=== PATIENT | male | born 1940 | race Caucasian/White ===

== ENCOUNTER 2019-01-09 06:48 | Inpatient (IN) | payer SELFPAY ==
[2017-03-04 14:13] VITALS: BMI 25.4
[2019-01-09] VITALS (14 sets, daily range): BP systolic 101–131; BP diastolic 52–74; PULSE 61–89; RESP 12–18; TEMP 36.4–37.3; O2SAT 94–97; BMI 24.3; BMI 23.6
--- NOTE | 2019-01-09 07:13 | CT_ITS ---
STUDY: CT ABDOMEN AND PELVIS WITHOUT CONTRAST REASON FOR EXAM: Male, 78 years old. Bloody stools for 2 days. RADIATION DOSAGE (If Supplied By Facility): CTDIvol = ( 6.86 ) mGy, DLP = ( 354.90 ) mGycm TECHNIQUE: Transaxial images were obtained from the dome of the diaphragm to the symphysis pubis without oral contrast, and without intravenous contrast. Sagittal and coronal images were reconstructed. Individualized dose optimization techniques were used for this CT. COMPARISON: None. FINDINGS: There are scattered calcified granulomata. The largest, in the right posterior costophrenic angle, measures 1 cm in diameter. The visualized portions of the heart are within normal limits. There are coronary artery calcifications. There is a large retrocardiac hernia of retroperitoneal fat. The stomach is normal position. There is a single calcified granulomata with otherwise normal liver. Normal gallbladder and extrahepatic biliary system. There are multiple benign calcified granulomata of the spleen. Normal pancreas. Normal bilateral adrenal glands. Normal right kidney. Normal left kidney. Normal visualized stomach. Normal small intestine. There are scattered diverticuli without acute inflammatory change. The colon is otherwise unremarkable. The appendix is visualized and appears normal. There is diffuse atherosclerotic calcification of the abdominal aorta, without a demonstrated aneurysm. Normal inferior vena cava. Normal retroperitoneum. Normal urinary bladder. Normal prostate. There is no pelvic lymphadenopathy. No free air or free fluid is seen within the abdominal cavity. There is a small supraumbilical hernia of omental fat. There is an umbilical hernia of omental fat. The abdominal wall is otherwise unremarkable. There are diffuse degenerative changes of the visualized lumbar spine. There are healed left-sided rib fractures. CT/Abdomen/Pelvis without Cont IMPRESSION: 1. Scattered colonic diverticuli without evidence for acute inflammatory change. There is no visualized colonic mass. 2. Old granulomatous disease. 3. Retrocardiac hernia of retroperitoneal fat. The stomach is normal position. 4. Degenerative changes of the lumbar spine. 5. Atherosclerotic changes of the aorta. Electronically Signed: Aaron Manning DO at 8:07 EDT Tel [phone], Service support ,
--- NOTE | 2019-01-09 07:15 | ED.DCSUM_ITS ---
- ER Visit Summary Date of Service: 01/09/19 Chief Complaint: Rectal bleeding History of Present Illness: The patient is a 78 M who presents for rectal bleeding since yesterday. Patient was having some left lower quadrant abdominal discomfort and noted that he was having dark-colored blood with every bowel movement. He is on Plavix for a cardiac stent and has been on fluoroscopy Profen for shoulder pain since last Thursday. He stopped the medication yesterday. Patient is having associated lightheadedness. He denies any vomiting, nausea or hematemesis. No history of colonoscopy. Physical Examination: Vital signs: afebrile, hemodynamically stable, no hypoxia on room air General: well nourished, well developed, in no distress Skin: warm, dry, no rash, pale HEENT: normocephalic and atraumatic; PERRL, EOMI, dry mucous membranes Cardiovascular: regular rate and rhythm without murmurs, no peripheral edema, 2+ pulses all distal extremities Respiratory: No increased work of breathing, lungs are clear to auscultation bilaterally, no rales, rhonchi or wheezing Abdominal: Abdomen is soft, nontender with normoactive bowel sounds, no guarding or rebound, no masses; maroonish brown stool on glove, no external hemorrhoids noted, no masses on rectal exam MSK: Moves all extremities, no deformities, normal strength Neuro: Awake and alert, oriented ?4. No facial droop, sensation and motor function intact and symmetric Test Results: Abnormal Lab Results 01/09/19 01/09/19 01/09/19 06:50 06:50 09:20 WBC 15.7 H RBC 4.07 L Hgb 11.9 L Hct 34.6 L MCV 85.0 MCH 29.2 MCHC 34.4 RDW 13.3 RDW Differential 41.3 Plt Count 255 MPV 9.7 Immature Gran % (Auto) 0.600 Neut % (Auto) 77.1 H Lymph % (Auto) 15.[address] [place] % (Auto) 5.9 Eos % (Auto) 0.6 Baso % (Auto) 0.4 Absolute Neuts (auto) 12.1 H Absolute Lymphs (auto) 2.41 Total Counted Not Reportable Sodium 137 Potassium 4.2 Chloride 107 Carbon Dioxide 25.0 Anion Gap 5 BUN 18 Creatinine 0.83 Estim Creat Clear Calc 70.96 Est GFR (MDRD) Af Amer 115 Est GFR (MDRD) Non-Af 95 BUN/Creatinine Ratio 21.7 H Glucose 158 H Calcium 7.7 L Urine Color Yellow Urine Clarity Clear Urine pH 6.0 Ur Specific [place] 1.015 Urine Protein Negative Urine Glucose (UA) Normal Urine Ketones Negative Urine Occult Blood 25 H Urine Nitrite Negative Urine Bilirubin Negative Urine Urobilinogen Normal Ur Leukocyte Esterase Negative Urine RBC 0 SEEN Urine WBC 0 SEEN Ur Squamous Epith Cells 0 SEEN Urine Bacteria 0 SEEN Urine Mucus 0 SEEN Clinical Impression(s) from Imaging Studies Abdomen/Pelvis CT 01/09/19 07:13 IMPRESSION: 1. Scattered colonic diverticuli without evidence for acute inflammatory change. There is no visualized colonic mass. 2. Old granulomatous disease. 3. Retrocardiac hernia of retroperitoneal fat. The stomach is normal position. 4. Degenerative changes of the lumbar spine. 5. Atherosclerotic changes of the aorta. Electronically Signed: Aaron Manning DO at 8:07 EDT Tel [phone], Service support , Medications Given Pantoprazole Sodium 80 mg/ (Sodium Chloride) 35 mls @ 420 mls/hr IV BOLUS X1 ONE Stop: 01/09/19 10:05 Discontinued Medications Sodium Chloride () 1,000 mls @ 1,000 mls/hr IV .Q1H ONE Stop: 01/09/19 08:11 Last Admin: 01/09/19 07:29 Dose: 1,000 mls/hr Emergency Department Course and Treatment: Patient was given IV fluids due to clinical dehydration. Labs were checked, showing a hemoglobin of 11.9 and a leukocytosis of 15.7. Patient was Hemoccult positive. CT of the abdomen and pelvis was performed but did show diverticulosis, which is a possible source of patient's bleeding. Patient was unable to spontaneously void, and urinary catheter placement was difficult, with resulting 600 cc of urine output once a coud? catheter was placed. Patient had some improvement in his abdominal discomfort after the draining of his bladder. Patient would get lightheaded and pale just sitting at the edge of the bed, which is concerning for possible symptomatic GI bleed. Patient was discussed with Dr. Mas, who will consult on the patient. She requested patient be started on Protonix just in case there is an upper GI component. Patient was discussed with Dr. Burch and admitted to the PCU for further management of symptomatic GI bleed. Treatment Plan: [] Disposition: [] Impression: Acute GI bleed, lightheadedness, acute urinary retention This note was generated with Twitpayation software. It may contain incorrect words, spelling, and punctuation that were not noted in review of the chart prior to signing ED Disposition - Plan for ED Patient: Referrals: Ludwig Diehl DO [Primary Care Provider] -
[2019-01-09 07:20] LABS: Absolute Lymphocyte Count 2.41 X10^3/ul (0.83-4.51); Absolute Neutrophil Count 12.1 X10^3/uL (2.0-7.7); Basophil# 0.06 X10^3/uL; Basophil% 0.4 % (0-1); Eosinophils% 0.6 % (0-5); Hematocrit 34.6 % (40-54); Hemoglobin 11.9 g/dl (13.0-16.5); Lymphocyte # 2.41 X10^3/ul (4.0); Lymphocyte % 15.4 % (19-41); Mean Corp Hgb Conc 34.4 g/gl (32-36); Mean Corpuscular Hgb 29.2 pg (27.0-32.0); Mean Platelet Vol. 9.7 fl (6.2-12.0); Monocyte# 0.92 X10^3/uL; Monocyte% 5.9 % (0-10); Neutrophil # 12.07 X10^3/uL (2.7-7.7); Neutrophil % 77.1 % (47-70); POSITIVE COUNT NO; POSITIVE DIFFERENTIAL NO; POSITIVE MORPHOLOGY NO; Platelet Count 255 K/mm3 (150-450); RBC Distribution Width CV 13.3 % (11.6-14.6); RBC Distribution Width SD 41.3 fl (35.1-43.9); Red Blood Count 4.07 M/mm3 (4.6-6.2); White Blood Count 15.7 K/mm3 (4.4-11.0)
[2019-01-09 07:26] LABS: Anion Gap 5 (5-15); BUN 18 mg/dL (7-18); BUN/Creat Ratio 21.7 RATIO (10-20); Calcium,Total 7.7 mg/dL (8.5-10.1); Chloride 107 mmol/L (98-107); Creatinine, Serum 0.83 mg/dL (0.70-1.30); EST Glomerular Filtration Rate 95 mL/min (>60); Est Glom Filt Rate - Afr Amer 115 mL/min (>60); Estimated Creatinine Clearance 70.96 ml/min; Glucose 158 mg/dL (74-106); Potassium 4.2 mmol/L (3.5-5.1); Sodium Level 137 mmol/L (136-145)
[2019-01-09] MEDS: 0.9% Normal Saline 1,000 ML 1000 ML IV (07:29)
[2019-01-09 09:28] LABS: Bacteria 0 SEEN /hpf (None Seen); Mucous, Urine 0 SEEN /hpf (<or=2+); Red Blood Cells-Urine 0 SEEN /hpf (0-5); Squamous Epithelial Cells - UA 0 SEEN /hpf (0-5); White Blood Cells 0 SEEN /hpf (0-5)
[2019-01-09 09:32] LABS: Color, Urine Yellow (Yellow); Glucose, Dipstick Normal (Normal); Ketone-Dipstick Negative (Negative); Leukocyte Esterase-Dipstick Negative /ul (Negative); Nitrite-Dipstick Negative (Negative); Occult Blood-Urine 25 /ul (Negative); Protein-Dipstick Negative (Negative); Specific Gravity, Urine 1.015 (1.002-1.030); Urine Bilirubin Dipstick Negative (Negative); Urine Clarity Clear (Clear); Urine Urobilinogen Normal (Normal)
--- NOTE | 2019-01-09 09:55 | EKG12_ITS ---
Test Reason : GI BLEED Blood Pressure : / mmHG Vent. Rate : 068 BPM Atrial Rate : 068 BPM P-R Int : 212 ms QRS Dur : 140 ms QT Int : 450 ms P-R-T Axes : 035 -10 008 degrees QTc Int : 478 ms Sinus rhythm with 1st degree A-V block Right bundle branch block Abnormal ECG Confirmed by CHAYA CLARK, YAKOV ([id number]), editor greeting card SERAFIN ALMAZAN ([id number]) on 01/12/2019 1:49:44 PM Referred By: ZAHRA Confirmed By:YAKOV LARKIN MD
--- NOTE | 2019-01-09 10:01 | NURSING ---
PCU GI BLEED ANTONY
--- NOTE | 2019-01-09 10:57 | PCM.CONS.GEN ---
Reason for Consult Date of Consultation: 01/09/19 History of Present Illness: The patient is a 78 year old M presented to the ER due to dark red blood in stool and lightheadedness this morning. Patient stent states since 230 yesterday he began having some dark red blood with his stool states he was quite a bit and he had multiple bowel movements yesterday. Patient denies any nausea/vomiting/abdominal pain. However he was lightheaded upon standing this morning which was new. Patient was just started on an NSAID for his arthritis however he does state that he takes this with food. Patient does have a history of reflux that he takes PPI for as needed. Patient states he had a colonoscopy about 16 years ago and had diverticuli noted unsure if he had any polyps or not. Patient did have a white blood count 15.[address] abdomen pelvis not show any inflammation of the colon did show scattered diverticuli and patient is not having any abdominal pain. Patient's hemoglobin is 11.9 on admit. Patient denies any family history of colon cancer. Patient is on aspirin and Plavix due to previous stent in 2017 however patient states he did not take his medication today. Aspirin Plavix are held. 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 [Ecotrin] 81 mg PO DAILY@0800 #30 tab 03/05/17 Nitroglycerin (INPATIENT USE) 0.4 mg SUBLINGUAL Q5M PRN #30 tab 03/05/17 [Nitrostat] atorvastatin 40 mg tablet 40 mg PO QDAY #90 tab 02/10/18 clopidogrel 75 mg tablet 75 mg PO QDAY #90 tab 03/26/18 metoprolol tartrate 25 mg tablet 12.5 mg PO BID #90 tab 03/26/18 Aspirin/Caffeine [Anacin 400-32 mg 1 each PO TID 01/09/19 Tablet] Flurbiprofen [Ansaid] 100 mg PO BID 01/09/19 Saw/Vit E/Sod Gila/Lyc/Beta/Pyg 1 each PO DAILY 01/09/19 [Prostate Health Caplet] Ubidecarenone/Vit E Acet [Co Q-10 1 each PO DAILY 01/09/19 100 mg Softgel] Surgical History: Surgical History (Last Reviewed 01/09/19 @ 12:03 by Scooter Burch DO) History of coronary artery stent placement (Chronic) Onset Date: 03/04/17 Z95.5 Pci-BERNARDO-Cx w/ 3.0 x 24 mm Synergy 03/04/17 Surgical History: - - back surgery 2013 Psychiatric History: No pertinent psych hx Smoking Status: Former smoker - *Family History Paternal Family History: Family History (Last Reviewed 01/09/19 @ 12:03 by Scooter Burch DO) Father CAD (coronary artery disease) History Items: Heart Disease Offspring Family History: Family History (Last Reviewed 01/09/19 @ 12:03 by Scooter Burch DO) Father CAD (coronary artery disease) History Items: Stroke - daughter Review of Systems Constitutional: Denies: Fever Eyes: Denies: Conjunctivae Inflammation HEENT: Denies: Difficulty Swallowing Cardiovascular: Denies: Chest Pain Respiratory: Denies: Cough Gastrointestinal: Reports: Hematochezia. Denies: Abdominal Pain, Hematemesis, Nausea, Melena, Vomiting Genitourinary: Reports: Retention Skin: Denies: Rash Neurological: Denies: Balance problems Psychiatric: Denies: Depression Hematologic/ Lymphatic: Reports: Easy Bruising - Patient is on aspirin Plavix Patient Problems: Active and Suspected Problems (Last Reviewed 01/09/19 @ 12:03 by Scooter Burch DO) GI bleed (Acute) - Physical Exam General: Alert, Oriented x3, Cooperative, No apparent distress HEENT: Atraumatic Lungs: Normal air movement Cardiovascular: Regular rate Abdomen: Soft, Non Tender - No peritoneal signs, Non-Distended Extremities: No clubbing, No cyanosis, No edema Skin: No rashes Neurological: Cranial nerves II-XII grossly intact Psych/Mental Status: Normal Affect Vital Signs Temp Pulse Resp BP Pulse Ox 97.8 F 67 16 101/66 95 01/09/19 06:51 01/09/19 10:00 01/09/19 10:00 01/09/19 10:00 01/09/19 10:00 Oxygen Delivery Method Room Air Weight: 160 lb Body Mass Index (BMI) 24.3 Microbiology Past 72 Hours 01/09/19 06:50 Stool Occult Blood (AMY) - Final Stool Occult Blood Positive Laboratory Tests Past 24 Hrs 01/09/19 01/09/19 01/09/19 06:50 06:50 06:50 WBC 15.7 H RBC 4.07 L Hgb 11.9 L Hct 34.6 L MCV 85.0 MCH 29.2 MCHC 34.4 RDW 13.3 RDW Differential 41.3 Plt Count 255 MPV 9.7 Immature Gran % (Auto) 0.600 Neut % (Auto) 77.1 H Lymph % (Auto) 15.4 L [place] % (Auto) 5.9 Eos % (Auto) 0.6 Baso % (Auto) 0.4 Absolute Neuts (auto) 12.1 H Absolute Lymphs (auto) 2.41 Total Counted Not Reportable Sodium 137 Potassium 4.2 Chloride 107 Carbon Dioxide 25.0 Anion Gap 5 BUN 18 Creatinine 0.83 Estim Creat Clear Calc 70.96 Est GFR (MDRD) Af Amer 115 Est GFR (MDRD) Non-Af 95 BUN/Creatinine Ratio 21.7 H Glucose 158 H Calcium 7.7 L Troponin I Urine Color Urine Clarity Urine pH Ur Specific [place] Urine Protein Urine Glucose (UA) Urine Ketones Urine Occult Blood Urine Nitrite Urine Bilirubin Urine Urobilinogen Ur Leukocyte Esterase Urine RBC Urine WBC Ur Squamous Epith Cells Urine Bacteria Urine Mucus Blood Type Pending Antibody Screen Pending 05/12/19 05/12/19 06:50 09:20 WBC RBC Hgb Hct MCV MCH MCHC RDW RDW Differential Plt Count MPV Immature Gran % (Auto) Neut % (Auto) Lymph % (Auto) [place] % (Auto) Eos % (Auto) Baso % (Auto) Absolute Neuts (auto) Absolute Lymphs (auto) Total Counted Sodium Potassium Chloride Carbon Dioxide Anion Gap BUN Creatinine Estim Creat Clear Calc Est GFR (MDRD) Af Amer Est GFR (MDRD) Non-Af BUN/Creatinine Ratio Glucose Calcium Troponin I < 0.015 Urine Color Yellow Urine Clarity Clear Urine pH 6.0 Ur Specific [place] 1.015 Urine Protein Negative Urine Glucose (UA) Normal Urine Ketones Negative Urine Occult Blood 25 H Urine Nitrite Negative Urine Bilirubin Negative Urine Urobilinogen Normal Ur Leukocyte Esterase Negative Urine RBC 0 SEEN Urine WBC 0 SEEN Ur Squamous Epith Cells 0 SEEN Urine Bacteria 0 SEEN Urine Mucus 0 SEEN Blood Type Antibody Screen Assessment/Plan All Active Problems (Last Reviewed 01/09/19 @ 12:03 by Scooter Burch DO) GI bleed (Acute) NSTEMI (non-ST elevated myocardial infarction) (Resolved) Chest pain (Resolved) 78-year-old male with dark red blood per rectum, anemia 1. I have discussed the above with the patient. I have offered the patient EGD and colonoscopy for evaluation. I have explained the risks/benefits of the procedure and described the procedure. I have discussed the risks with the patient, including but not limited to: infection, bleeding discussed with patient he may be a slightly higher risk due to previously on aspirin Plavix would plan to only take smaller biopsies and may need to come back for anything larger, perforation of the GI tract requiring emergency surgery, inability to complete the procedure, injury to any internal organs, complications of anesthesia, etc. - the patient understands and agrees to proceed. I have answered all the patient's questions to the patient's satisfaction and the patient has no further questions. Will give patient GoLYTELY. Plan for EGD and colonoscopy in early afternoon tomorrow. Naima Mas M.D. Pager: [phone] [facility] [address] [place] [address], [facility], [address] [place] [address] Office: [phone] Code Visit Inpatient E&M: 85408 Init Hosp L2
--- NOTE | 2019-01-09 11:01 | CON.PCM_ITS ---
Reason for Consult Date of Consultation: 01/09/19 History of Present Illness: The patient is a 78 year old M presented to the ER due to dark red blood in stool and lightheadedness this morning. Patient stent states since 230 yesterday he began having some dark red blood with his stool states he was quite a bit and he had multiple bowel movements yesterday. Patient denies any nausea/vomiting/abdominal pain. However he was lightheaded upon standing this morning which was new. Patient was just started on an NSAID for his arthritis however he does state that he takes this with food. Patient does have a history of reflux that he takes PPI for as needed. Patient states he had a colonoscopy about 16 years ago and had diverticuli noted unsure if he had any polyps or not. Patient did have a white blood count 15.[address] abdomen pelvis not show any inflammation of the colon did show scattered diverticuli and patient is not having any abdominal pain. Patient's hemoglobin is 11.9 on admit. Patient denies any family history of colon cancer. Patient is on aspirin and Plavix due to previous stent in 2017 however patient states he did not take his medication today. Aspirin Plavix are held. 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 [Ecotrin] 81 mg PO DAILY@0800 #30 tab 03/05/17 Nitroglycerin (INPATIENT USE) 0.4 mg SUBLINGUAL Q5M PRN #30 tab 03/05/17 [Nitrostat] atorvastatin 40 mg tablet 40 mg PO QDAY #90 tab 02/10/18 clopidogrel 75 mg tablet 75 mg PO QDAY #90 tab 03/26/18 metoprolol tartrate 25 mg tablet 12.5 mg PO BID #90 tab 03/26/18 Aspirin/Caffeine [Anacin 400-32 mg 1 each PO TID 01/09/19 Tablet] Flurbiprofen [Ansaid] 100 mg PO BID 01/09/19 Saw/Vit E/Sod [place]ila/Lyc/Beta/Pyg 1 each PO DAILY 01/09/19 [Prostate Health Caplet] Ubidecarenone/Vit E Acet [Co Q-10 1 each PO DAILY 01/09/19 100 mg Softgel] Surgical History: Surgical History (Last Reviewed 01/09/19 @ 12:03 by Scooter Burch DO) History of coronary artery stent placement (Chronic) Onset Date: 03/04/17 Z95.5 Pci-BERNARDO-Cx w/ 3.0 x 24 mm Synergy 03/04/17 Surgical History: - - back surgery 2013 Psychiatric History: No pertinent psych hx Smoking Status: Former smoker - *Family History Paternal Family History: Family History (Last Reviewed 01/09/19 @ 12:03 by Scooter Burch DO) Father CAD (coronary artery disease) History Items: Heart Disease Offspring Family History: Family History (Last Reviewed 01/09/19 @ 12:03 by Scooter Burch DO) Father CAD (coronary artery disease) History Items: Stroke - daughter Review of Systems Constitutional: Denies: Fever Eyes: Denies: Conjunctivae Inflammation HEENT: Denies: Difficulty Swallowing Cardiovascular: Denies: Chest Pain Respiratory: Denies: Cough Gastrointestinal: Reports: Hematochezia. Denies: Abdominal Pain, Hematemesis, Nausea, Melena, Vomiting Genitourinary: Reports: Retention Skin: Denies: Rash Neurological: Denies: Balance problems Psychiatric: Denies: Depression Hematologic/ Lymphatic: Reports: Easy Bruising - Patient is on aspirin Plavix Patient Problems: Active and Suspected Problems (Last Reviewed 01/09/19 @ 12:03 by Scooter Burch DO) GI bleed (Acute) - Physical Exam General: Alert, Oriented x3, Cooperative, No apparent distress HEENT: Atraumatic Lungs: Normal air movement Cardiovascular: Regular rate Abdomen: Soft, Non Tender - No peritoneal signs, Non-Distended Extremities: No clubbing, No cyanosis, No edema Skin: No rashes Neurological: Cranial nerves II-XII grossly intact Psych/Mental Status: Normal Affect Vital Signs Temp Pulse Resp BP Pulse Ox 97.8 F 67 16 101/66 95 01/09/19 06:51 01/09/19 10:00 01/09/19 10:00 01/09/19 10:00 01/09/19 10:00 Oxygen Delivery Method Room Air Weight: 160 lb Body Mass Index (BMI) 24.3 Microbiology Past 72 Hours 01/09/19 06:50 Stool Occult Blood (AMY) - Final Stool Occult Blood Positive Laboratory Tests Past 24 Hrs 01/09/19 01/09/19 01/09/19 06:50 06:50 06:50 WBC 15.7 H RBC 4.07 L Hgb 11.9 L Hct 34.6 L MCV 85.0 MCH 29.2 MCHC 34.4 RDW 13.3 RDW Differential 41.3 Plt Count 255 MPV 9.7 Immature Gran % (Auto) 0.600 Neut % (Auto) 77.1 H Lymph % (Auto) 15.4 L [place] % (Auto) 5.9 Eos % (Auto) 0.6 Baso % (Auto) 0.4 Absolute Neuts (auto) 12.1 H Absolute Lymphs (auto) 2.41 Total Counted Not Reportable Sodium 137 Potassium 4.2 Chloride 107 Carbon Dioxide 25.0 Anion Gap 5 BUN 18 Creatinine 0.83 Estim Creat Clear Calc 70.96 Est GFR (MDRD) Af Amer 115 Est GFR (MDRD) Non-Af 95 BUN/Creatinine Ratio 21.7 H Glucose 158 H Calcium 7.7 L Troponin I Urine Color Urine Clarity Urine pH Ur Specific [place] Urine Protein Urine Glucose (UA) Urine Ketones Urine Occult Blood Urine Nitrite Urine Bilirubin Urine Urobilinogen Ur Leukocyte Esterase Urine RBC Urine WBC Ur Squamous Epith Cells Urine Bacteria Urine Mucus Blood Type Pending Antibody Screen Pending 05/12/19 05/12/19 06:50 09:20 WBC RBC Hgb Hct MCV MCH MCHC RDW RDW Differential Plt Count MPV Immature Gran % (Auto) Neut % (Auto) Lymph % (Auto) [place] % (Auto) Eos % (Auto) Baso % (Auto) Absolute Neuts (auto) Absolute Lymphs (auto) Total Counted Sodium Potassium Chloride Carbon Dioxide Anion Gap BUN Creatinine Estim Creat Clear Calc Est GFR (MDRD) Af Amer Est GFR (MDRD) Non-Af BUN/Creatinine Ratio Glucose Calcium Troponin I < 0.015 Urine Color Yellow Urine Clarity Clear Urine pH 6.0 Ur Specific [place] 1.015 Urine Protein Negative Urine Glucose (UA) Normal Urine Ketones Negative Urine Occult Blood 25 H Urine Nitrite Negative Urine Bilirubin Negative Urine Urobilinogen Normal Ur Leukocyte Esterase Negative Urine RBC 0 SEEN Urine WBC 0 SEEN Ur Squamous Epith Cells 0 SEEN Urine Bacteria 0 SEEN Urine Mucus 0 SEEN Blood Type Antibody Screen Assessment/Plan All Active Problems (Last Reviewed 01/09/19 @ 12:03 by Scooter Burch DO) GI bleed (Acute) NSTEMI (non-ST elevated myocardial infarction) (Resolved) Chest pain (Resolved) 78-year-old male with dark red blood per rectum, anemia 1. I have discussed the above with the patient. I have offered the patient EGD and colonoscopy for evaluation. I have explained the risks/benefits of the procedure and described the procedure. I have discussed the risks with the patient, including but not limited to: infection, bleeding discussed with patient he may be a slightly higher risk due to previously on aspirin Plavix would plan to only take smaller biopsies and may need to come back for anything larger, perforation of the GI tract requiring emergency surgery, inability to complete the procedure, injury to any internal organs, complications of anesthesia, etc. - the patient understands and agrees to proceed. I have answered all the patient's questions to the patient's satisfaction and the patient has no further questions. Will give patient GoLYTELY. Plan for EGD and colonoscopy in early afternoon tomorrow. Naima Mas M.D. Pager: [phone] [facility] [place] [facility] [address] [place] [address], [facility], [address] [place] [address] Office: [phone] Code Visit Inpatient E&M: 72383 Init Hosp L2
[2019-01-09] MEDS: 0.9% Normal Saline 1,000 ML 75 ML IV ×2 (12:00→22:10)
--- NOTE | 2019-01-09 12:00 | PCM.HP.STD ---
Problem List (1) GI bleed Status: Acute Qualifiers: GI bleed type/associated pathology: unspecified gastrointestinal hemorrhage type Qualified Code(s): K92.2 - Gastrointestinal hemorrhage, unspecified History of Present Illness Date of Admission: 01/09/19 Chief Complaint: GI bleed The patient is a 78 year old M presents with 1 day history of lower GI bleed. Has never had this before. Was feeling lightheaded and presented to the emergency room. Hemoglobin was noted to be 11.9. Patient takes aspirin and Plavix given coronary stent that he received in 2016 but also has been taking Anacin and flurbiprofen. Seen by general surgery and the plan is for endoscopy on the . Patient denies any hematemesis. Does have some lower suprapubic abdominal tenderness. CAT scan performed in the emergency room that showed diverticulosis but no other acute process. 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 [Ecotrin] 81 mg PO DAILY@0800 #30 tab 03/05/17 Nitroglycerin (INPATIENT USE) 0.4 mg SUBLINGUAL Q5M PRN #30 tab 03/05/17 [Nitrostat] atorvastatin 40 mg tablet 40 mg PO QDAY #90 tab 02/10/18 clopidogrel 75 mg tablet 75 mg PO QDAY #90 tab 03/26/18 metoprolol tartrate 25 mg tablet 12.5 mg PO BID #90 tab 03/26/18 Aspirin/Caffeine [Anacin 400-32 mg 1 each PO TID 01/09/19 Tablet] Flurbiprofen [Ansaid] 100 mg PO BID 01/09/19 Saw/Vit E/Sod Gila/Lyc/Beta/Pyg 1 each PO DAILY 01/09/19 [Prostate Health Caplet] Ubidecarenone/Vit E Acet [Co Q-10 1 each PO DAILY 01/09/19 100 mg Softgel] Surgical History: Surgical History (Last Reviewed 01/09/19 @ 12:03 by Scooter Burch DO) History of coronary artery stent placement (Chronic) Onset Date: 03/04/17 Z95.5 Pci-BERNARDO-Cx w/ 3.0 x 24 mm Synergy 03/04/17 Surgical History: - - back surgery 2013 Psychiatric History: No pertinent psych hx Smoking Status: Former smoker Tobacco Use: Chew - *Family History Paternal Family History: Family History (Last Reviewed 01/09/19 @ 12:03 by Scooter Burch DO) Father CAD (coronary artery disease) History Items: Heart Disease Offspring Family History: Family History (Last Reviewed 01/09/19 @ 12:03 by Scooter Burch DO) Father CAD (coronary artery disease) History Items: Stroke - daughter Review of Systems Constitutional: Denies: Anorexia, Chills, Fever Eyes: Denies: Blurred vision, Double vision HEENT: Denies: Head Aches, Sinus Congestion, Sinus Drainage Cardiovascular: Denies: Chest Pain, Palpitations Respiratory: Denies: Cough, Shortness of breath at rest, Sputum production Gastrointestinal: Reports: Abdominal Pain, Hematochezia. Denies: Hematemesis, Nausea Genitourinary: Denies: Dysuria Musculoskeletal: Denies: Joint Pain, Joint Tenderness Skin: Denies: Rash, Wounds Neurological: Denies: Numbness, Tingling, Focal weakness Psychiatric: Denies: Anxiety, Depression Hematologic/ Lymphatic: Denies: Easy Bruising, Easy Bleeding, Hx of blood clot Comment: A 10 point review of systems were negative except as mentioned in the history of present illness and the other review of systems. VTE Information - Inpt Only VTE Present on Admission: No VTE Mechan Device Prophylaxis: SCD's VTE Pharm Prophylaxis ordered?: No Patient Problems: Active and Suspected Problems (Last Reviewed 02/10/18 @ 11:21 by Po Lopez MD) GI bleed (Acute) - Physical Exam General: Alert, Cooperative, No apparent distress HEENT: Atraumatic, Normocephalic Oral: Moist Mucosa, No Gingival or Mucosal Lesions/ Ulcerations Neck: No Nodes, Thyroid Normal Size and Texture Lungs: Clear to auscultation, Normal air movement, No rhonchi, No wheeze Cardiovascular: Regular rate, Regular Rhythm, Normal S1, Normal S2, No murmurs Abdomen: Bowel Sounds Present, Soft, Non Tender, Non-Distended, No Hepato-splenomegaly Extremities: No edema, No Calf Tenderness Skin: No rashes, No breakdown Musculoskeletal: No Tenderness to Palpation of Joints or Extremities, No Muscle Wasting, Arthritic Changes Lymphatic: No Cervical, Supraclavicular, or Inguinal Adenopathy, Cervical Adenopathy Neurological: Neuro grossly intact, Sensory exam intact to light touch and pain, Coordination normal Psych/Mental Status: Normal Affect, Appropriate Vital Signs Temp Pulse Resp BP Pulse Ox 36.4 C L 71 12 104/68 97 01/09/19 11:06 01/09/19 11:09 01/09/19 11:06 01/09/19 11:09 01/09/19 11:06 Oxygen Delivery Method Room Air Weight: 70.5 kg Body Mass Index (BMI) 23.6 Intake and Output for Last 24 Hours 01/07/19 01/08/19 01/09/19 23:59 23:59 23:59 Intake Total 100 / 100 Balance 100 / 100 Microbiology Past 72 Hours 01/09/19 06:50 Stool Occult Blood (AMY) - Final Stool Occult Blood Positive Laboratory Tests Past 24 Hrs 01/09/19 01/09/19 01/09/19 06:50 06:50 06:50 WBC 15.7 H RBC 4.07 L Hgb 11.9 L Hct 34.6 L MCV 85.0 MCH 29.2 MCHC 34.4 RDW 13.3 RDW Differential 41.3 Plt Count 255 MPV 9.7 Immature Gran % (Auto) 0.600 Neut % (Auto) 77.1 H Lymph % (Auto) 15.4 L [place] % (Auto) 5.9 Eos % (Auto) 0.6 Baso % (Auto) 0.4 Absolute Neuts (auto) 12.1 H Absolute Lymphs (auto) 2.41 Total Counted Not Reportable Sodium 137 Potassium 4.2 Chloride 107 Carbon Dioxide 25.0 Anion Gap 5 BUN 18 Creatinine 0.83 Estim Creat Clear Calc 70.96 Est GFR (MDRD) Af Amer 115 Est GFR (MDRD) Non-Af 95 BUN/Creatinine Ratio 21.7 H Glucose 158 H Calcium 7.7 L Troponin I Urine Color Urine Clarity Urine pH Ur Specific [place] Urine Protein Urine Glucose (UA) Urine Ketones Urine Occult Blood Urine Nitrite Urine Bilirubin Urine Urobilinogen Ur Leukocyte Esterase Urine RBC Urine WBC Ur Squamous Epith Cells Urine Bacteria Urine Mucus Blood Type A POSITIVE Antibody Screen NEGATIVE 01/09/19 01/09/19 01/09/19 06:50 09:20 11:54 WBC Pending RBC Pending Hgb Pending Hct Pending MCV Pending MCH Pending MCHC Pending RDW Pending RDW Differential Pending Plt Count Pending MPV Immature Gran % (Auto) Neut % (Auto) Pending Lymph % (Auto) [place] % (Auto) Eos % (Auto) Baso % (Auto) Absolute Neuts (auto) Pending Absolute Lymphs (auto) Total Counted Pending Sodium Potassium Chloride Carbon Dioxide Anion Gap BUN Creatinine Estim Creat Clear Calc Est GFR (MDRD) Af Amer Est GFR (MDRD) Non-Af BUN/Creatinine Ratio Glucose Calcium Troponin I < 0.015 Urine Color Yellow Urine Clarity Clear Urine pH 6.0 Ur Specific [place] 1.015 Urine Protein Negative Urine Glucose (UA) Normal Urine Ketones Negative Urine Occult Blood 25 H Urine Nitrite Negative Urine Bilirubin Negative Urine Urobilinogen Normal Ur Leukocyte Esterase Negative Urine RBC 0 SEEN Urine WBC 0 SEEN Ur Squamous Epith Cells 0 SEEN Urine Bacteria 0 SEEN Urine Mucus 0 SEEN Blood Type Antibody Screen Assessment/Plan All Active Problems (Last Reviewed 02/10/18 @ 11:21 by Po Lopez MD) GI bleed (Acute) NSTEMI (non-ST elevated myocardial infarction) (Resolved) Chest pain (Resolved) 1. GI bleed Given the [place] blood I suspect this is more lower possibly related with his diverticulosis. Seen by general surgery and plan is for endoscopy on the . In the meantime, patient be on a clear liquid diet and will receive additional prep for colonoscopy. Will monitor his hemoglobin. No indication to transfuse at this time but his hemoglobin may be lagging behind is blood loss. Did discuss with patient that he is taking way too much NSAIDs in regards to the Anacin and flurbiprofen Those medications in addition to his regular aspirin and Plavix will be held as well. 2. Coronary artery disease. Patient has stent placed in 2017 It is safe to hold those medications for the time being Follow-up cardiology as outpatient 3. DVT prophylaxis with SCDs Discussed with the patient's son at bedside. Code Visit Inpatient E&M: 47030 Init Hosp L3
--- NOTE | 2019-01-09 12:04 | HP.PCM_ITS ---
Problem List (1) GI bleed Status: Acute Qualifiers: GI bleed type/associated pathology: unspecified gastrointestinal hemorrhage type Qualified Code(s): K92.2 - Gastrointestinal hemorrhage, unspecified History of Present Illness Date of Admission: 01/09/19 Chief Complaint: GI bleed The patient is a 78 year old M presents with 1 day history of lower GI bleed. Has never had this before. Was feeling lightheaded and presented to the emergency room. Hemoglobin was noted to be 11.9. Patient takes aspirin and Plavix given coronary stent that he received in 2016 but also has been taking Anacin and flurbiprofen. Seen by general surgery and the plan is for endoscopy on the . Patient denies any hematemesis. Does have some lower suprapubic abdominal tenderness. CAT scan performed in the emergency room that showed diverticulosis but no other acute process. 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 [Ecotrin] 81 mg PO DAILY@0800 #30 tab 03/05/17 Nitroglycerin (INPATIENT USE) 0.4 mg SUBLINGUAL Q5M PRN #30 tab 03/05/17 [Nitrostat] atorvastatin 40 mg tablet 40 mg PO QDAY #90 tab 02/10/18 clopidogrel 75 mg tablet 75 mg PO QDAY #90 tab 03/26/18 metoprolol tartrate 25 mg tablet 12.5 mg PO BID #90 tab 03/26/18 Aspirin/Caffeine [Anacin 400-32 mg 1 each PO TID 01/09/19 Tablet] Flurbiprofen [Ansaid] 100 mg PO BID 01/09/19 Saw/Vit E/Sod [place]/Lyc/Beta/Pyg 1 each PO DAILY 01/09/19 [Prostate Health Caplet] Ubidecarenone/Vit E Acet [Co Q-10 1 each PO DAILY 01/09/19 100 mg Softgel] Surgical History: Surgical History (Last Reviewed 01/09/19 @ 12:03 by Scooter Burch DO) History of coronary artery stent placement (Chronic) Onset Date: 03/04/17 Z95.5 Pci-BERNARDO-Cx w/ 3.0 x 24 mm Synergy 03/04/17 Surgical History: - - back surgery 2013 Psychiatric History: No pertinent psych hx Smoking Status: Former smoker Tobacco Use: Chew - *Family History Paternal Family History: Family History (Last Reviewed 01/09/19 @ 12:03 by Scooter Burch DO) Father CAD (coronary artery disease) History Items: Heart Disease Offspring Family History: Family History (Last Reviewed 01/09/19 @ 12:03 by Scooter Burch DO) Father CAD (coronary artery disease) History Items: Stroke - daughter Review of Systems Constitutional: Denies: Anorexia, Chills, Fever Eyes: Denies: Blurred vision, Double vision HEENT: Denies: Head Aches, Sinus Congestion, Sinus Drainage Cardiovascular: Denies: Chest Pain, Palpitations Respiratory: Denies: Cough, Shortness of breath at rest, Sputum production Gastrointestinal: Reports: Abdominal Pain, Hematochezia. Denies: Hematemesis, Nausea Genitourinary: Denies: Dysuria Musculoskeletal: Denies: Joint Pain, Joint Tenderness Skin: Denies: Rash, Wounds Neurological: Denies: Numbness, Tingling, Focal weakness Psychiatric: Denies: Anxiety, Depression Hematologic/ Lymphatic: Denies: Easy Bruising, Easy Bleeding, Hx of blood clot Comment: A 10 point review of systems were negative except as mentioned in the history of present illness and the other review of systems. VTE Information - Inpt Only VTE Present on Admission: No VTE Mechan Device Prophylaxis: SCD's VTE Pharm Prophylaxis ordered?: No Patient Problems: Active and Suspected Problems (Last Reviewed 02/10/18 @ 11:21 by Po Lopez MD) GI bleed (Acute) - Physical Exam General: Alert, Cooperative, No apparent distress HEENT: Atraumatic, Normocephalic Oral: Moist Mucosa, No Gingival or Mucosal Lesions/ Ulcerations Neck: No Nodes, Thyroid Normal Size and Texture Lungs: Clear to auscultation, Normal air movement, No rhonchi, No wheeze Cardiovascular: Regular rate, Regular Rhythm, Normal S1, Normal S2, No murmurs Abdomen: Bowel Sounds Present, Soft, Non Tender, Non-Distended, No Hepato- splenomegaly Extremities: No edema, No Calf Tenderness Skin: No rashes, No breakdown Musculoskeletal: No Tenderness to Palpation of Joints or Extremities, No Muscle Wasting, Arthritic Changes Lymphatic: No Cervical, Supraclavicular, or Inguinal Adenopathy, Cervical Adenopathy Neurological: Neuro grossly intact, Sensory exam intact to light touch and pain, Coordination normal Psych/Mental Status: Normal Affect, Appropriate Vital Signs Temp Pulse Resp BP Pulse Ox 36.4 C L 71 12 104/68 97 01/09/19 11:06 01/09/19 11:09 01/09/19 11:06 01/09/19 11:09 01/09/19 11:06 Oxygen Delivery Method Room Air Weight: 70.5 kg Body Mass Index (BMI) 23.6 Intake and Output for Last 24 Hours 01/07/19 01/08/19 01/09/19 23:59 23:59 23:59 Intake Total 100 / 100 Balance 100 / 100 Microbiology Past 72 Hours 01/09/19 06:50 Stool Occult Blood (AMY) - Final Stool Occult Blood Positive Laboratory Tests Past 24 Hrs 01/09/19 01/09/19 01/09/19 06:50 06:50 06:50 WBC 15.7 H RBC 4.07 L Hgb 11.9 L Hct 34.6 L MCV 85.0 MCH 29.2 MCHC 34.4 RDW 13.3 RDW Differential 41.3 Plt Count 255 MPV 9.7 Immature Gran % (Auto) 0.600 Neut % (Auto) 77.1 H Lymph % (Auto) 15.4 L [place] % (Auto) 5.9 Eos % (Auto) 0.6 Baso % (Auto) 0.4 Absolute Neuts (auto) 12.1 H Absolute Lymphs (auto) 2.41 Total Counted Not Reportable Sodium 137 Potassium 4.2 Chloride 107 Carbon Dioxide 25.0 Anion Gap 5 BUN 18 Creatinine 0.83 Estim Creat Clear Calc 70.96 Est GFR (MDRD) Af Amer 115 Est GFR (MDRD) Non-Af 95 BUN/Creatinine Ratio 21.7 H Glucose 158 H Calcium 7.7 L Troponin I Urine Color Urine Clarity Urine pH Ur Specific [place] Urine Protein Urine Glucose (UA) Urine Ketones Urine Occult Blood Urine Nitrite Urine Bilirubin Urine Urobilinogen Ur Leukocyte Esterase Urine RBC Urine WBC Ur Squamous Epith Cells Urine Bacteria Urine Mucus Blood Type A POSITIVE Antibody Screen NEGATIVE 01/09/19 01/09/19 01/09/19 06:50 09:20 11:54 WBC Pending RBC Pending Hgb Pending Hct Pending MCV Pending MCH Pending MCHC Pending RDW Pending RDW Differential Pending Plt Count Pending MPV Immature Gran % (Auto) Neut % (Auto) Pending Lymph % (Auto) [place] % (Auto) Eos % (Auto) Baso % (Auto) Absolute Neuts (auto) Pending Absolute Lymphs (auto) Total Counted Pending Sodium Potassium Chloride Carbon Dioxide Anion Gap BUN Creatinine Estim Creat Clear Calc Est GFR (MDRD) Af Amer Est GFR (MDRD) Non-Af BUN/Creatinine Ratio Glucose Calcium Troponin I < 0.015 Urine Color Yellow Urine Clarity Clear Urine pH 6.0 Ur Specific [place] 1.015 Urine Protein Negative Urine Glucose (UA) Normal Urine Ketones Negative Urine Occult Blood 25 H Urine Nitrite Negative Urine Bilirubin Negative Urine Urobilinogen Normal Ur Leukocyte Esterase Negative Urine RBC 0 SEEN Urine WBC 0 SEEN Ur Squamous Epith Cells 0 SEEN Urine Bacteria 0 SEEN Urine Mucus 0 SEEN Blood Type Antibody Screen Assessment/Plan All Active Problems (Last Reviewed 02/10/18 @ 11:21 by Po Lopez MD) GI bleed (Acute) NSTEMI (non-ST elevated myocardial infarction) (Resolved) Chest pain (Resolved) 1. GI bleed * Given the [place] blood I suspect this is more lower possibly related with his diverticulosis. * Seen by general surgery and plan is for endoscopy on the . * In the meantime, patient be on a clear liquid diet and will receive additional prep for colonoscopy. * Will monitor his hemoglobin. No indication to transfuse at this time but his hemoglobin may be lagging behind is blood loss. * Did discuss with patient that he is taking way too much NSAIDs in regards to the Anacin and flurbiprofen * Those medications in addition to his regular aspirin and Plavix will be held as well. 2. Coronary artery disease. * Patient has stent placed in 2017 * It is safe to hold those medications for the time being * Follow-up cardiology as outpatient 3. DVT prophylaxis with SCDs Discussed with the patient's son at bedside. Code Visit Inpatient E&M: 58079 Init Hosp L3
[2019-01-09 12:07] LABS: Absolute Lymphocyte Count 1.92 X10^3/ul (0.83-4.51); Absolute Neutrophil Count 12.3 X10^3/uL (2.0-7.7); Basophil# 0.03 X10^3/uL; Basophil% 0.2 % (0-1); Hematocrit 33.4 % (40-54); Hemoglobin 11.4 g/dl (13.0-16.5); Lymphocyte # 1.92 X10^3/ul (4.0); Lymphocyte % 12.9 % (19-41); Mean Corp Hgb Conc 34.1 g/gl (32-36); Mean Corpuscular Hgb 29.2 pg (27.0-32.0); Mean Corpuscular Volume 85.4 fL (80-94); Mean Platelet Vol. 9.6 fl (6.2-12.0); Monocyte# 0.58 X10^3/uL; Monocyte% 3.9 % (0-10); Neutrophil % 82.6 % (47-70); POSITIVE COUNT NO; POSITIVE DIFFERENTIAL NO; POSITIVE MORPHOLOGY NO; Platelet Count 258 K/mm3 (150-450); RBC Distribution Width CV 13.4 % (11.6-14.6); RBC Distribution Width SD 41.8 fl (35.1-43.9); Red Blood Count 3.91 M/mm3 (4.6-6.2); White Blood Count 14.9 K/mm3 (4.4-11.0)
[2019-01-09] MEDS: Metoprolol Tartrate 25 MG Tablet 12.5 MG PO ×2 (14:04→22:09)
[2019-01-09] MEDS: Electrolyte Solution/Peg's 4000 ML PO (14:05)
[2019-01-09 20:17] LABS: Hematocrit 31.3 % (40-54); Hemoglobin 10.8 g/dl (13.0-16.5)
[2019-01-10] VITALS (17 sets, daily range): BP systolic 94–162; BP diastolic 55–94; PULSE 71–91; RESP 16–18; TEMP 36.7–37.3; O2SAT 94–100
[2019-01-10 06:15] LABS: Anion Gap 6 (5-15); BUN 9 mg/dL (7-18); BUN/Creat Ratio 11.8 RATIO (10-20); Calcium,Total 7.7 mg/dL (8.5-10.1); Chloride 111 mmol/L (98-107); Creatinine, Serum 0.76 mg/dL (0.70-1.30); EST Glomerular Filtration Rate 105 mL/min (>60); Est Glom Filt Rate - Afr Amer 127 mL/min (>60); Glucose 100 mg/dL (74-106); Potassium 3.9 mmol/L (3.5-5.1); Sodium Level 143 mmol/L (136-145)
[2019-01-10] MEDS: Bisacodyl 5 MG Tablet 10 MG PO (06:20)
--- NOTE | 2019-01-10 06:32 | NURSING ---
PATIENT GIVEN TAP WATER ENEMA, TOLERATED FAIR, HAD A HARD TIME HOLDING IN WATER. STOOL WAS A LIGHT YELLOW/BROWN COLOR
--- NOTE | 2019-01-10 06:43 | PCM.PN.SRG ---
Patient Problems: Active and Suspected Problems (Last Reviewed 01/09/19 @ 12:03 by Scooter Burch DO) GI bleed (Acute) Subjective: Patient completed bowel prep currently having light galvez liquid stools per nursing this morning, no blood in recent stools. Tap water enema and Dulcolax ordered - Physical Exam General: Alert, Oriented x3, Cooperative, No apparent distress HEENT: Atraumatic Lungs: Normal air movement Cardiovascular: Regular rate Abdomen: Soft, Non Tender Vital Signs Temp Pulse Resp BP Pulse Ox 99.1 F 88 18 94/57 L 96 01/10/19 03:34 01/10/19 03:34 01/10/19 03:34 01/10/19 03:34 01/10/19 03:34 Oxygen Delivery Method Room Air Weight: 155 lb 6.814 oz Body Mass Index (BMI) 23.6 Intake and Output for Last 24 Hours 01/08/19 01/09/19 01/10/19 23:59 23:59 23:59 Intake Total 3053 / 3053 1638 / 1638 Output Total 1999 / 1999 2300 / 2300 Balance 1053 / 1053 -662 / -662 Microbiology Past 72 Hours 01/09/19 06:50 Stool Occult Blood (AMY) - Final Stool Occult Blood Positive Laboratory Tests Past 24 Hrs 01/09/19 01/09/19 01/09/19 06:50 06:50 06:50 WBC 15.7 H RBC 4.07 L Hgb 11.9 L Hct 34.6 L MCV 85.0 MCH 29.2 MCHC 34.4 RDW 13.3 RDW Differential 41.3 Plt Count 255 MPV 9.7 Immature Gran % (Auto) 0.600 Neut % (Auto) 77.1 H Lymph % (Auto) 15.4 L [place] % (Auto) 5.9 Eos % (Auto) 0.6 Baso % (Auto) 0.4 Absolute Neuts (auto) 12.1 H Absolute Lymphs (auto) 2.41 Total Counted Not Reportable Sodium 137 Potassium 4.2 Chloride 107 Carbon Dioxide 25.0 Anion Gap 5 BUN 18 Creatinine 0.83 Estim Creat Clear Calc 70.96 Est GFR (MDRD) Af Amer 115 Est GFR (MDRD) Non-Af 95 BUN/Creatinine Ratio 21.7 H Glucose 158 H Calcium 7.7 L Troponin I Urine Color Urine Clarity Urine pH Ur Specific [place] Urine Protein Urine Glucose (UA) Urine Ketones Urine Occult Blood Urine Nitrite Urine Bilirubin Urine Urobilinogen Ur Leukocyte Esterase Urine RBC Urine WBC Ur Squamous Epith Cells Urine Bacteria Urine Mucus Blood Type A POSITIVE Antibody Screen NEGATIVE 01/09/19 01/09/19 01/09/19 06:50 09:20 11:54 WBC 14.9 H RBC 3.91 L Hgb 11.4 L Hct 33.4 L MCV 85.4 MCH 29.2 MCHC 34.1 RDW 13.4 RDW Differential 41.8 Plt Count 258 MPV 9.6 Immature Gran % (Auto) 0.400 Neut % (Auto) 82.6 H Lymph % (Auto) 12.9 L [place] % (Auto) 3.9 Eos % (Auto) 0.0 Baso % (Auto) 0.2 Absolute Neuts (auto) 12.3 H Absolute Lymphs (auto) 1.92 Total Counted Not Reportable Sodium Potassium Chloride Carbon Dioxide Anion Gap BUN Creatinine Estim Creat Clear Calc Est GFR (MDRD) Af Amer Est GFR (MDRD) Non-Af BUN/Creatinine Ratio Glucose Calcium Troponin I < 0.015 Urine Color Yellow Urine Clarity Clear Urine pH 6.0 Ur Specific [place] 1.015 Urine Protein Negative Urine Glucose (UA) Normal Urine Ketones Negative Urine Occult Blood 25 H Urine Nitrite Negative Urine Bilirubin Negative Urine Urobilinogen Normal Ur Leukocyte Esterase Negative Urine RBC 0 SEEN Urine WBC 0 SEEN Ur Squamous Epith Cells 0 SEEN Urine Bacteria 0 SEEN Urine Mucus 0 SEEN Blood Type Antibody Screen 01/09/19 01/10/19 20:10 05:00 WBC RBC Hgb 10.8 L Hct 31.3 L MCV MCH MCHC RDW RDW Differential Plt Count MPV Immature Gran % (Auto) Neut % (Auto) Lymph % (Auto) [place] % (Auto) Eos % (Auto) Baso % (Auto) Absolute Neuts (auto) Absolute Lymphs (auto) Total Counted Sodium 143 Potassium 3.9 Chloride 111 H Carbon Dioxide 26.0 Anion Gap 6 BUN 9 Creatinine 0.76 Estim Creat Clear Calc 58.90 Est GFR (MDRD) Af Amer 127 Est GFR (MDRD) Non-Af 105 BUN/Creatinine Ratio 11.8 Glucose 100 Calcium 7.7 L Troponin I Urine Color Urine Clarity Urine pH Ur Specific [place] Urine Protein Urine Glucose (UA) Urine Ketones Urine Occult Blood Urine Nitrite Urine Bilirubin Urine Urobilinogen Ur Leukocyte Esterase Urine RBC Urine WBC Ur Squamous Epith Cells Urine Bacteria Urine Mucus Blood Type Antibody Screen Medical Necessity - Tobacco Use Smoking Status: Former smoker Tobacco Use: Chew Assessment/Plan All Active Problems (Last Reviewed 01/09/19 @ 12:03 by Scooter Burch DO) GI bleed (Acute) NSTEMI (non-ST elevated myocardial infarction) (Resolved) Chest pain (Resolved) 78-year-old male with dark red blood per rectum, anemia 1. EGD and colonoscopy scheduled this afternoon. Giving patient tapwater enema as well as Dulcolax this morning. Naima Mas M.D. Pager: [phone] [facility] [address] [place] [address], [facility], [address] [place] [id number] Office: [phone]
--- NOTE | 2019-01-10 06:47 | PN.SURG_ITS ---
Patient Problems: Active and Suspected Problems (Last Reviewed 01/09/19 @ 12:03 by Scooter Burch DO) GI bleed (Acute) Subjective: Patient completed bowel prep currently having light galvez liquid stools per nursing this morning, no blood in recent stools. Tap water enema and Dulcolax ordered - Physical Exam General: Alert, Oriented x3, Cooperative, No apparent distress HEENT: Atraumatic Lungs: Normal air movement Cardiovascular: Regular rate Abdomen: Soft, Non Tender Vital Signs Temp Pulse Resp BP Pulse Ox 99.1 F 88 18 94/57 L 96 01/10/19 03:34 01/10/19 03:34 01/10/19 03:34 01/10/19 03:34 01/10/19 03:34 Oxygen Delivery Method Room Air Weight: 155 lb 6.814 oz Body Mass Index (BMI) 23.6 Intake and Output for Last 24 Hours 01/08/19 01/09/19 01/10/19 23:59 23:59 23:59 Intake Total 3053 / 3053 1638 / 1638 Output Total 1999 / 1999 2300 / 2300 Balance 1053 / 1053 -662 / -662 Microbiology Past 72 Hours 01/09/19 06:50 Stool Occult Blood (AMY) - Final Stool Occult Blood Positive Laboratory Tests Past 24 Hrs 01/09/19 01/09/19 01/09/19 06:50 06:50 06:50 WBC 15.7 H RBC 4.07 L Hgb 11.9 L Hct 34.6 L MCV 85.0 MCH 29.2 MCHC 34.4 RDW 13.3 RDW Differential 41.3 Plt Count 255 MPV 9.7 Immature Gran % (Auto) 0.600 Neut % (Auto) 77.1 H Lymph % (Auto) 15.4 L [place] % (Auto) 5.9 Eos % (Auto) 0.6 Baso % (Auto) 0.4 Absolute Neuts (auto) 12.1 H Absolute Lymphs (auto) 2.41 Total Counted Not Reportable Sodium 137 Potassium 4.2 Chloride 107 Carbon Dioxide 25.0 Anion Gap 5 BUN 18 Creatinine 0.83 Estim Creat Clear Calc 70.96 Est GFR (MDRD) Af Amer 115 Est GFR (MDRD) Non-Af 95 BUN/Creatinine Ratio 21.7 H Glucose 158 H Calcium 7.7 L Troponin I Urine Color Urine Clarity Urine pH Ur Specific [place] Urine Protein Urine Glucose (UA) Urine Ketones Urine Occult Blood Urine Nitrite Urine Bilirubin Urine Urobilinogen Ur Leukocyte Esterase Urine RBC Urine WBC Ur Squamous Epith Cells Urine Bacteria Urine Mucus Blood Type A POSITIVE Antibody Screen NEGATIVE 01/09/19 01/09/19 01/09/19 06:50 09:20 11:54 WBC 14.9 H RBC 3.91 L Hgb 11.4 L Hct 33.4 L MCV 85.4 MCH 29.2 MCHC 34.1 RDW 13.4 RDW Differential 41.8 Plt Count 258 MPV 9.6 Immature Gran % (Auto) 0.400 Neut % (Auto) 82.6 H Lymph % (Auto) 12.9 L [place] % (Auto) 3.9 Eos % (Auto) 0.0 Baso % (Auto) 0.2 Absolute Neuts (auto) 12.3 H Absolute Lymphs (auto) 1.92 Total Counted Not Reportable Sodium Potassium Chloride Carbon Dioxide Anion Gap BUN Creatinine Estim Creat Clear Calc Est GFR (MDRD) Af Amer Est GFR (MDRD) Non-Af BUN/Creatinine Ratio Glucose Calcium Troponin I < 0.015 Urine Color Yellow Urine Clarity Clear Urine pH 6.0 Ur Specific [place] 1.015 Urine Protein Negative Urine Glucose (UA) Normal Urine Ketones Negative Urine Occult Blood 25 H Urine Nitrite Negative Urine Bilirubin Negative Urine Urobilinogen Normal Ur Leukocyte Esterase Negative Urine RBC 0 SEEN Urine WBC 0 SEEN Ur Squamous Epith Cells 0 SEEN Urine Bacteria 0 SEEN Urine Mucus 0 SEEN Blood Type Antibody Screen 01/09/19 01/10/19 20:10 05:00 WBC RBC Hgb 10.8 L Hct 31.3 L MCV MCH MCHC RDW RDW Differential Plt Count MPV Immature Gran % (Auto) Neut % (Auto) Lymph % (Auto) [place] % (Auto) Eos % (Auto) Baso % (Auto) Absolute Neuts (auto) Absolute Lymphs (auto) Total Counted Sodium 143 Potassium 3.9 Chloride 111 H Carbon Dioxide 26.0 Anion Gap 6 BUN 9 Creatinine 0.76 Estim Creat Clear Calc 58.90 Est GFR (MDRD) Af Amer 127 Est GFR (MDRD) Non-Af 105 BUN/Creatinine Ratio 11.8 Glucose 100 Calcium 7.7 L Troponin I Urine Color Urine Clarity Urine pH Ur Specific [place] Urine Protein Urine Glucose (UA) Urine Ketones Urine Occult Blood Urine Nitrite Urine Bilirubin Urine Urobilinogen Ur Leukocyte Esterase Urine RBC Urine WBC Ur Squamous Epith Cells Urine Bacteria Urine Mucus Blood Type Antibody Screen Medical Necessity - Tobacco Use Smoking Status: Former smoker Tobacco Use: Chew Assessment/Plan All Active Problems (Last Reviewed 01/09/19 @ 12:03 by Scooter Burch DO) GI bleed (Acute) NSTEMI (non-ST elevated myocardial infarction) (Resolved) Chest pain (Resolved) 78-year-old male with dark red blood per rectum, anemia 1. EGD and colonoscopy scheduled this afternoon. Giving patient tapwater enema as well as Dulcolax this morning. Naima Mas M.D. Pager: [phone] [facility] [address] [place] [address], [facility], [address] [place] [id number] Office: [phone]
[2019-01-10 07:01] LABS: Absolute Lymphocyte Count 3.24 X10^3/ul (0.83-4.51); Absolute Neutrophil Count 8.1 X10^3/uL (2.0-7.7); Basophil# 0.03 X10^3/uL; Basophil% 0.2 % (0-1); Eosinophil# 0.15 X10^3/uL; Eosinophils% 1.2 % (0-5); Hematocrit 29.6 % (40-54); Hemoglobin 10.1 g/dl (13.0-16.5); Lymphocyte # 3.24 X10^3/ul (4.0); Lymphocyte % 24.9 % (19-41); Mean Corp Hgb Conc 34.1 g/gl (32-36); Mean Corpuscular Hgb 29.4 pg (27.0-32.0); Mean Platelet Vol. 9.6 fl (6.2-12.0); Neutrophil # 8.14 X10^3/uL (2.7-7.7); Neutrophil % 62.5 % (47-70); Platelet Count 257 K/mm3 (150-450); RBC Distribution Width CV 13.6 % (11.6-14.6); RBC Distribution Width SD 43.1 fl (35.1-43.9); Red Blood Count 3.44 M/mm3 (4.6-6.2)
[2019-01-10 07:29] LABS: POSITIVE COUNT NO; POSITIVE DIFFERENTIAL NO; POSITIVE MORPHOLOGY YES
[2019-01-10 07:30] LABS: Differential Indicated SCAN CRITERIA MET
--- NOTE | 2019-01-10 10:12 | NURSING ---
tap water enema given. Large amount of light yellow liquid stool post enema. Stool is water consistency.
--- NOTE | 2019-01-10 11:06 | CASEMGMT ---
GABE DEL TORO assessment: Face to Face with patient for initial transition planning/care coordination assessment. GABE DEL TORO introduced self and role at [facility], pt voices understanding and consents to assessment at this time. Pt is lying flat in bed in no distress at this time. Pt is A/Ox4 at this time and answers all questions appropriately at this time. Care providers, pharmacy, and demographics verified/updated at this time. PCP: Shanita Specialists: John cardio Preferred Pharmacy: [facility] Insurance: Pt is [place] and self pay. Pt states does not have help from [employer] and states that he pays for all medical out of pocket on his own and states no concerns at this time. Prescription Benefit: Self pay as above and per financial note, [facility] liaison to see pt. Living Will/HPOA: Pt states does not have LW/HPOA and declines AD info at this time. LNOK: Sampson Rinaldi, son Living Arrangements: Pt states lives with his son and family in a home and states no concerns at home at this time. Pt states is independent with ADL's at home at this time. Transportation: Pt states no transportation concerns at this time. DME/HHC: Pt states has the following DME: cane, w/c and walker at home and states no need for any further DME at this time. Pt states no hx of HHC or SNF in the past. Pt states no concerns with going home at time of discharge. Pt states is retired. Pt states does not smoke or drink ETOH. Pt states no further questions/concerns/needs at this time. CM to follow for any further discharge planning/needs. Advised pt to ask for CM if any further questions/concerns/needs arise, voices understanding. Pt Goal: Home Plan: [place] GABE DEL TORO
--- NOTE | 2019-01-10 11:52 | CASEMGMT ---
Referral placed for self pay. RN ALVERTO saw patient for assessment. He is [place], but his confucianism does not pay for his care. He has been paying out of pocket for medications and doctor's visits. He has had no problems managing financially. He did want to make sure that he talks with someone from financial at [facility] as they normally give a discount to [facility]. Per Patient Financial Services note Cate the [facility] liaison will be seeing patient. MIGUEL will not see patient for financial issues as it appears he has none other than his hospital bill, which the [facility] Liaison will address. Sarah CHOW [employer]
--- NOTE | 2019-01-10 12:05 | NURSING ---
Pt off floor for upper and lower scope at this time
--- NOTE | 2019-01-10 12:33 | PCM.PN.HOSP ---
Patient Problems: Active and Suspected Problems (Last Reviewed 01/09/19 @ 12:03 by Scooter Burch DO) GI bleed (Acute) Subjective: No further bleeding. Vitals/I&O's: Vital Signs Temp Pulse Resp BP Pulse Ox 36.9 C 84 16 102/55 L 94 01/10/19 09:30 01/10/19 09:30 01/10/19 09:30 01/10/19 09:30 01/10/19 09:30 Oxygen Delivery Method Room Air Weight: 70.5 kg Body Mass Index (BMI) 23.6 Intake and Output for Last 24 Hours 01/08/19 01/09/19 01/10/19 23:59 23:59 23:59 Intake Total 3053 / 3053 1878 / 1878 Output Total 1999 / 1999 3000 / 3000 Balance 1053 / 1053 -1122 / -1122 General: Alert, No apparent distress HEENT: Atraumatic, Normocephalic Oral: Moist Mucosa, No Gingival or Mucosal Lesions/ Ulcerations Neck: No Nodes, Thyroid Normal Size and Texture Lungs: Clear to auscultation, Normal air movement, No rhonchi, No wheeze Cardiovascular: Regular rate, Regular Rhythm, Normal S1, Normal S2, No murmurs Abdomen: Bowel Sounds Present, Soft, Non Tender, Non-Distended Extremities: No edema, No Calf Tenderness Skin: No rashes, No breakdown Psych/Mental Status: Normal Affect, Appropriate Microbiology Past 72 Hours 01/09/19 06:50 Stool Stool Occult Blood (AMY) - Final Occult Blood Positive Laboratory Results 01/09/19 20:10: Hgb 10.8 L, Hct 31.3 L 01/10/19 05:00: Sodium 143, Potassium 3.9, Chloride 111 H, Carbon Dioxide 26.0, Anion Gap 6, BUN 9, Creatinine 0.76, Estim Creat Clear Calc 58.90, Est GFR (MDRD) Af Amer 127, Est GFR (MDRD) Non-Af 105, BUN/Creatinine Ratio 11.8, Glucose 100, Calcium 7.7 L 01/10/19 05:00: WBC 13.0 H, RBC 3.44 L, Hgb 10.1 L, Hct 29.6 L, MCV 86.0, MCH 29.4, MCHC 34.1, RDW 13.6, RDW Differential 43.1, Plt Count 257, MPV 9.6, Immature Gran % (Auto) 1.200 H, Neut % (Auto) 62.5, Lymph % (Auto) 24.9, [place] % (Auto) 10.0, Eos % (Auto) 1.2, Baso % (Auto) 0.2, Absolute Neuts (auto) 8.1 H, Absolute Lymphs (auto) 3.24, Total Counted Not Reportable Current Medications Acetaminophen (Tylenol) 650 mg PO Q6H PRN PRN PRN Reason: Mild pain 1-3/Temp > 100.7 F Dextrose (D50w Syringe) 0 gm IV X1 PRN; Protocol PRN Reason: Hypoglycemia Glucagon () 1 mg IM .X1 PRN PRN Reason: Hypoglycemia Sodium Chloride () 1,000 mls @ 75 mls/hr IV .[id number] [facility] Last Admin: 01/09/19 22:10 Dose: 75 mls/hr Pantoprazole Sodium 40 mg/ (Sodium Chloride) 110 mls @ 330 mls/hr IV Q12 [facility] Last Admin: 01/09/19 22:10 Dose: 330 mls/hr Metoprolol Tartrate (Lopressor (Beta Divina)) 12.5 mg PO BID [facility] Last Admin: 01/09/19 22:09 Dose: 12.5 mg Nitroglycerin (Nitrostat) 0.4 mg SUBLINGUAL Q5M PRN PRN Reason: CHEST PAIN Ondansetron HCl (Zofran) 4 mg IV Q8H PRN PRN PRN Reason: NAUSEA/VOMITING Sodium Chloride () 5 - 15 ml IV UD PRN PRN Reason: SALINE FLUSH Medical Necessity - Tobacco Use Smoking Status: Former smoker Tobacco Use: Chew Assessment/Plan All Active Problems (Last Reviewed 01/09/19 @ 12:03 by Scooter Burch DO) GI bleed (Acute) NSTEMI (non-ST elevated myocardial infarction) (Resolved) Chest pain (Resolved) 1. GI bleed appears to be resolved Given the ginette blood I suspect this is more lower possibly related with his diverticulosis. Seen by general surgery and plan is for endoscopy on the . In the meantime, patient be on a clear liquid diet and will receive additional prep for colonoscopy. Will monitor his hemoglobin. No indication to transfuse at this time but his hemoglobin may be lagging behind is blood loss. Did discuss with patient that he is taking way too much NSAIDs in regards to the Anacin and flurbiprofen Those medications in addition to his regular aspirin and Plavix will be held as well. 2. acute blood loss anemia Hg 10.1, down from 11.9. no indication for transfusion. monitor. 3. Coronary artery disease. Patient has stent placed in 2017 It is safe to hold those medications for the time being Follow-up cardiology as outpatient 4. DVT prophylaxis with SCDs Code Visit Inpatient E&M: 48156 Subs Hosp L2
--- NOTE | 2019-01-10 12:36 | PN_ITS ---
Patient Problems: Active and Suspected Problems (Last Reviewed 01/09/19 @ 12:03 by Scooter Burch DO) GI bleed (Acute) Subjective: No further bleeding. Vitals/I&O's: Vital Signs Temp Pulse Resp BP Pulse Ox 36.9 C 84 16 102/55 L 94 01/10/19 09:30 01/10/19 09:30 01/10/19 09:30 01/10/19 09:30 01/10/19 09:30 Oxygen Delivery Method Room Air Weight: 70.5 kg Body Mass Index (BMI) 23.6 Intake and Output for Last 24 Hours 01/08/19 01/09/19 01/10/19 23:59 23:59 23:59 Intake Total 3053 / 3053 1878 / 1878 Output Total 1999 / 1999 3000 / 3000 Balance 1053 / 1053 -1122 / -1122 General: Alert, No apparent distress HEENT: Atraumatic, Normocephalic Oral: Moist Mucosa, No Gingival or Mucosal Lesions/ Ulcerations Neck: No Nodes, Thyroid Normal Size and Texture Lungs: Clear to auscultation, Normal air movement, No rhonchi, No wheeze Cardiovascular: Regular rate, Regular Rhythm, Normal S1, Normal S2, No murmurs Abdomen: Bowel Sounds Present, Soft, Non Tender, Non-Distended Extremities: No edema, No Calf Tenderness Skin: No rashes, No breakdown Psych/Mental Status: Normal Affect, Appropriate Microbiology Past 72 Hours 01/09/19 06:50 Stool Stool Occult Blood (AMY) - Final Occult Blood Positive Laboratory Results 01/09/19 20:10: Hgb 10.8 L, Hct 31.3 L 01/10/19 05:00: Sodium 143, Potassium 3.9, Chloride 111 H, Carbon Dioxide 26.0, Anion Gap 6, BUN 9, Creatinine 0.76, Estim Creat Clear Calc 58.90, Est GFR (MDRD) Af Amer 127, Est GFR (MDRD) Non-Af 105, BUN/Creatinine Ratio 11.8, Glucose 100, Calcium 7.7 L 01/10/19 05:00: WBC 13.0 H, RBC 3.44 L, Hgb 10.1 L, Hct 29.6 L, MCV 86.0, MCH 29.4, MCHC 34.1, RDW 13.6, RDW Differential 43.1, Plt Count 257, MPV 9.6, Immature Gran % (Auto) 1.200 H, Neut % (Auto) 62.5, Lymph % (Auto) 24.9, [place] % (Auto) 10.0, Eos % (Auto) 1.2, Baso % (Auto) 0.2, Absolute Neuts (auto) 8.1 H, Absolute Lymphs (auto) 3.24, Total Counted Not Reportable Current Medications Acetaminophen (Tylenol) 650 mg PO Q6H PRN PRN PRN Reason: Mild pain 1-3/Temp > 100.7 F Dextrose (D50w Syringe) 0 gm IV X1 PRN; Protocol PRN Reason: Hypoglycemia Glucagon () 1 mg IM .X1 PRN PRN Reason: Hypoglycemia Sodium Chloride () 1,000 mls @ 75 mls/hr IV .[id number] [facility] Last Admin: 01/09/19 22:10 Dose: 75 mls/hr Pantoprazole Sodium 40 mg/ (Sodium Chloride) 110 mls @ 330 mls/hr IV Q12 [facility] Last Admin: 01/09/19 22:10 Dose: 330 mls/hr Metoprolol Tartrate (Lopressor (Beta Divina)) 12.5 mg PO BID [facility] Last Admin: 01/09/19 22:09 Dose: 12.5 mg Nitroglycerin (Nitrostat) 0.4 mg SUBLINGUAL Q5M PRN PRN Reason: CHEST PAIN Ondansetron HCl (Zofran) 4 mg IV Q8H PRN PRN PRN Reason: NAUSEA/VOMITING Sodium Chloride () 5 - 15 ml IV UD PRN PRN Reason: SALINE FLUSH Medical Necessity - Tobacco Use Smoking Status: Former smoker Tobacco Use: Chew Assessment/Plan All Active Problems (Last Reviewed 01/09/19 @ 12:03 by Scooter Burch DO) GI bleed (Acute) NSTEMI (non-ST elevated myocardial infarction) (Resolved) Chest pain (Resolved) 1. GI bleed * appears to be resolved * Given the ginette blood I suspect this is more lower possibly related with his diverticulosis. * Seen by general surgery and plan is for endoscopy on the . * In the meantime, patient be on a clear liquid diet and will receive additional prep for colonoscopy. * Will monitor his hemoglobin. No indication to transfuse at this time but his hemoglobin may be lagging behind is blood loss. * Did discuss with patient that he is taking way too much NSAIDs in regards to the Anacin and flurbiprofen * Those medications in addition to his regular aspirin and Plavix will be held as well. 2. acute blood loss anemia * Hg 10.1, down from 11.9. no indication for transfusion. monitor. 3. Coronary artery disease. * Patient has stent placed in 2017 * It is safe to hold those medications for the time being * Follow-up cardiology as outpatient 4. DVT prophylaxis with SCDs Code Visit Inpatient E&M: 71981 Subs Hosp L2
--- NOTE | 2019-01-10 13:00 | EGD_PTH ---
PATIENT: HIRAM DEGROOT LOC: [facility] U#:[id number] AGE/SX: 78/M ROOM: [facility] RE01/09/[address]: Dr. Scooter Burch DO : 1940 BED: 1 DIS: 01/11/2019 SPEC #: [id number] RECD: 01/10/19 15:37 STATUS: GORGE REKeenan #: [id number] KEVEN: 01/10/19 13:[address]: Naima Mas DEPT: SURGICAL PATHOLOGY RECD BY: Latrell Ahuamda ENTERED: 01/11/19 08:38 SP TYPE: EGD BIOPSY OTHR DR: DO Dr. Ludwig Greco DO Dr. Tamera Robotham, MD Tissues: A - Gastric mucous membrane B - Gastric mucous membrane C - Ileum, NOS D - Ileum, NOS Procedures: Special Stain Group II Surgery Specimen Level IV Iron Stain (control) Alcian Blue/PAS (control) Comments: @ Ordering doctor for SUIV edited from to @ by AMINAH at 01/11/19 1142 @ Submitting doctor edited from to @ by RGOOD at 01/11/19 1142 HEADER OPERATION: Colonoscopy, EGD ([facility]) PRE-OP DIAGNOSIS: GI bleed TISSUE SUBMITTED: A - Biopsy gastric antrum, H. pylori and path, B - Biopsy GE junction, C - Biopsy terminal ileum, D - Biopsy ileocecal valve MICROSCOPIC DIAGNOSIS A. Gastric antrum, biopsy: Mild chronic gastritis. See comment. B. Gastroesophageal junction, biopsy: Fragment of gastric mucosa with mild chronic inflammation. No evidence of intestinal metaplasia. No focal acute inflammation. See comment. C. Terminal ileum, biopsy: No significant pathologic change. No evidence of ileitis. See comment. D. Ileocecal valve, biopsy: Melanosis coli. Recent mucosal hemorrhage of unknown etiology, focal. See comment. AM:ish 01/12/19 COMMENT A. The results of immunohistochemistry for Helicobacter pylori will be reported separately ([id number]). B. Squamous mucosa is not represented in the biopsy. Clinical correlation is suggested. Alcian blue/PAS stain with matched control supports the above diagnosis. C. Benign appearing chronic lymphoid is focally identified. D. Iron stain with matched control supports the above diagnosis. MICROSCOPIC DESCRIPTION Slides are reviewed. GROSS DESCRIPTION A - Received in fixative is one container labeled with the patient's name and designated biopsy gastric antrum. The specimen consists of one irregular fragment of light galvez soft tissue that measures 0.6 x 0.3 x 0.1 cm. The specimen is totally submitted in one cassette. B - Received in fixative is one container labeled with the patient's name and designated biopsy GE junction. The specimen consists of one irregular fragment of light galvez soft tissue that measures 0.3 x 0.3 x 0.1 cm. The specimen is totally submitted in one cassette. C - Received in fixative is one container labeled with the patient's name and designated biopsy terminal ileum. The specimen consists of multiple irregular fragments of light galvez soft tissue that in aggregate measure 0.6 x 0.4 x 0.1 cm. The specimen is totally submitted in one cassette. D - Received in fixative is one container labeled with the patient's name and designated biopsy ileocecal valve. The specimen consists of multiple irregular fragments of light galvez soft tissue that in aggregate measure 0.5 x 0.5 x 0.1 cm. The specimen is totally submitted in one cassette. / SJ:rg 01/11/19 TC:3 CPT: 72758 x4, 58376 x2
--- NOTE | 2019-01-10 13:00 | IMM_PTH ---
PATIENT: HIRAM DEGROOT LOC: [facility] U#:[id number] AGE/SX: 78/M ROOM: [facility] RE01/09/[address]: Dr. Scooter Burch DO : 1940 BED: 1 DIS: 01/11/2019 SPEC #: [id number] RECD: 01/11/19 11:10 STATUS: GORGE REQ #: [id number] KEVEN: 01/10/19 13:[address]: Naima Mas DEPT: IMMUNOHISTOCHEMISTRY RECD BY: Isis Ho ENTERED: 01/11/19 11:11 SP TYPE: IMMUNO OTHR DR: DO Dr. Ludwig Greco DO Tissues: A - Stomach, NOS Procedures: H Pylori (initial) PHYSICIAN & INSTITUTION [place] [phone] SPECIMEN INFORMATION: Tissue Source: A - Gastric antrum biopsy Clinical Info: GI bleed Specimen Number: [id number] CPT code: 87916 METHODOLOGY: Deparaffinized sections of prefer/formalin-fixed tissue or PAP/DQ stained slides are incubated with monoclonal/polyclonal antibodies/oligonucleotide probes. Localization is made via biotin free immunoperoxidase method. Appropriate controls are performed and reacted as expected. Results on target cell population are indicated in the following table: RESULTS: ANTIBODY / CLONE RESULT Block A H Pylori (polyclonal) negative These tests were developed and their performance characteristics determined by [facility]. They may not have been cleared or approved by the U.S. Food and Drug Administration. The FDA has determined that such clearance or approval is not necessary. INTERPRETATION: A. Gastric antrum, biopsy: Negative for Helicobacter pylori organisms. AM:ish 01/12/19
--- NOTE | 2019-01-10 13:07 | OP.ENDO_ITS ---
01/10/2019 Ludwig Diehl Re : Upper GI endoscopy procedure for Nawaf Rinaldi Dear Shanita This procedure was performed on Thursday, January 10, 2019. My impressions and recommendations are as follows: Impressions : - Z-line irregular, 40 cm from the incisors. Biopsied. - Small hiatal hernia. - Normal examined duodenum. - Gastritis. Biopsied. Recommendations : - Await pathology results. - Return patient to hospital little for ongoing care. - Clear liquid diet. - Continue present medications. My findings are described in the full procedure note, which is enclosed. If I can be of further assistance, please feel free to contact me at Doctor phone number(s): , Work: . Sincerely, MD Naima Barriga MD 01/10/2019 1:06:57 PM This report has been signed electronically.
--- NOTE | 2019-01-10 13:12 | OP.ENDO_ITS ---
01/10/2019 Ludwig Diehl Re : Colonoscopy procedure for Nawaf Rinaldi Dear Shanita This procedure was performed on Thursday, January 10, 2019. My impressions and recommendations are as follows: Impressions : - Erythematous mucosa at the ileocecal valve. Biopsied. - The examined portion of the ileum was normal. Biopsied. - Diverticulosis in the sigmoid colon, in the descending colon and in the ascending colon. Recommendations : - Return patient to hospital little for ongoing care. - Clear liquid diet. - Cipro (ciprofloxacin) 400 mg IV q 12 hr. - Flagyl (metronidazole) 500 mg IV loading dose followed by 500 mg IV q 8 hr [Duration]. - No recommendation at this time regarding repeat colonoscopy due to age. - Continue present medications. My findings are described in the full procedure note, which is enclosed. If I can be of further assistance, please feel free to contact me at Doctor phone number(s): , Work: . Sincerely, MD Naima Barriga MD 01/10/2019 1:11:42 PM This report has been signed electronically.
[2019-01-10] MEDS: Metoprolol Tartrate 25 MG Tablet 12.5 MG PO ×2 (13:52→21:31)
[2019-01-10] MEDS: Ciprofloxacin 400 MG/200 ML BAG 200 MG IV ×2 (15:53→21:53)
[2019-01-10] MEDS: 0.9% Normal Saline 1,000 ML 75 ML IV (17:34)
[2019-01-11 02:59] VITALS: PULSE 74
[2019-01-11 03:30] VITALS: BP 122/68; PULSE 78; RESP 16; TEMP 36.9; O2SAT 97
[2019-01-11 06:49] VITALS: PULSE 75
[2019-01-11 07:52] LABS: Absolute Neutrophil Count 8.9 X10^3/uL (2.0-7.7); Basophil# 0.05 X10^3/uL; Basophil% 0.4 % (0-1); Eosinophils% 1.4 % (0-5); Hematocrit 30.7 % (40-54); Hemoglobin 10.6 g/dl (13.0-16.5); Mean Corp Hgb Conc 34.5 g/gl (32-36); Mean Corpuscular Hgb 29.9 pg (27.0-32.0); Mean Corpuscular Volume 86.5 fL (80-94); Mean Platelet Vol. 9.4 fl (6.2-12.0); Monocyte# 1.34 X10^3/uL; Monocyte% 9.6 % (0-10); Neutrophil # 8.94 X10^3/uL (2.7-7.7); Neutrophil % 64.4 % (47-70); Platelet Count 267 K/mm3 (150-450); RBC Distribution Width CV 13.4 % (11.6-14.6); RBC Distribution Width SD 42.7 fl (35.1-43.9); Red Blood Count 3.55 M/mm3 (4.6-6.2); White Blood Count 13.9 K/mm3 (4.4-11.0)
[2019-01-11 07:54] LABS: Differential Indicated SCAN CRITERIA MET; POSITIVE COUNT NO; POSITIVE DIFFERENTIAL NO; POSITIVE MORPHOLOGY YES
[2019-01-11 08:00] VITALS: BP 128/72; PULSE 74; RESP 20; TEMP 36.9; O2SAT 94
[2019-01-11 09:55] VITALS: BP 128/72; PULSE 91
[2019-01-11] MEDS: Metoprolol Tartrate 25 MG Tablet 12.5 MG PO (09:55)
--- NOTE | 2019-01-11 10:27 | PN.SURG_ITS ---
Patient Problems: Active and Suspected Problems (Last Reviewed 01/09/19 @ 12:03 by Scooter Burch DO) GI bleed (Acute) Subjective: Patient evaluated resting comfortably in bed. He denies abdominal pain/discomfort. He has not noted any further rectal bleeding. Patient notes to taking 2,000 mg daily of aspirin since his stroke in 2013 in addition to his Plavix. On colonoscopy yesterday, Erythema was noted at the ileocecal valve. Patient was placed on Cipro and Flagyl. Diverticulosis of sigmoid, descending, and ascending colon was noted. Upper scope notable for gastritis, irregular z- line, and small hiatal hernia. - Physical Exam General: Alert, Oriented x3, Cooperative Abdomen: Bowel Sounds Present, Soft, Non Tender Vital Signs Temp Pulse Resp BP Pulse Ox 98.5 F 91 20 H 128/72 H 94 01/11/19 08:00 01/11/19 09:55 01/11/19 08:00 01/11/19 09:55 01/11/19 08:00 Oxygen Delivery Method Room Air Weight: 155 lb 6.814 oz Body Mass Index (BMI) 23.6 Intake and Output for Last 24 Hours 01/09/19 01/10/19 01/11/19 23:59 23:59 23:59 Intake Total 3053 / 3053 3568 / 3568 1619 / 1619 Output Total 1999 / 1999 4350 / 4350 2425 / 2425 Balance 1053 / 1053 -782 / -782 -806 / -806 Microbiology Past 72 Hours 01/09/19 06:50 Stool Occult Blood (AMY) - Final Stool Occult Blood Positive Laboratory Tests Past 24 Hrs 01/11/19 07:10 WBC 13.9 H RBC 3.55 L Hgb 10.6 L Hct 30.7 L MCV 86.5 MCH 29.9 MCHC 34.5 RDW 13.4 RDW Differential 42.7 Plt Count 267 MPV 9.4 Immature Gran % (Auto) 1.200 H Neut % (Auto) 64.4 Lymph % (Auto) 23.0 [place] % (Auto) 9.6 Eos % (Auto) 1.4 Baso % (Auto) 0.4 Absolute Neuts (auto) 8.9 H Absolute Lymphs (auto) 3.20 Total Counted Not Reportable Differential Comment COMMENT Medical Necessity - Tobacco Use Smoking Status: Former smoker Tobacco Use: Chew Assessment/Plan All Active Problems (Last Reviewed 01/09/19 @ 12:03 by Scooter Burch DO) GI bleed (Acute) NSTEMI (non-ST elevated myocardial infarction) (Resolved) Chest pain (Resolved) I am following this patient in conjunction with Dr. Mas Impression: Inflammation and irritation at the ileocecal valve. Continue IV antibiotics Hold Plavix for 1 week Patient may resume 81 mg daily of aspirin. Discussed with patient in regards to amount of aspirin he is taking. We will continue to monitor this patient Dr. Mas will independently evaluate this patient Code Visit Inpatient E&M: 24633 Subs Hosp L1
[2019-01-11] MEDS: Ciprofloxacin 400 MG/200 ML BAG 200 MG IV (10:52)
[2019-01-11] MEDS: 0.9% Normal Saline 1,000 ML 75 ML IV (11:42)
--- NOTE | 2019-01-11 13:01 | DCINST_ITS ---
- Discharge Diagnoses Current Active Problems: Current Active and Chronic Problems (Last Reviewed 01/09/19 @ 12:03 by Scooter Burch DO) GI bleed (Acute) You will use the following diet at home:: Cardiac Your food should be the consistency of: Regular Your liquids should be the consistency of: Regular/Thin Discharge Activity: Return to Normal Activity Call your doctor if you observe: - - rectal bleeding. dark tarry stools. worsening abdominal pain Allergies/Adverse Reactions: Allergies No Known Allergies Allergy (Verified 01/09/19 06:49) Medications to take at Discharge Lansoprazole [Prevacid] 15 mg PO DAILY PRN PRN 03/03/17 Aspirin E.C. [Ecotrin] 81 mg PO DAILY@0800 #30 tab 03/05/17 Nitroglycerin (INPATIENT USE) [Nitrostat] 0.4 mg SUBLINGUAL Q5M PRN #30 tab 03/05/17 atorvastatin 40 mg tablet 40 mg PO QDAY #90 tab 02/10/18 clopidogrel 75 mg tablet 75 mg PO QDAY #90 tab 03/26/18 metoprolol tartrate 25 mg tablet 12.5 mg PO BID #90 tab 03/26/18 Saw/Vit E/Sod Gila/Lyc/Beta/Pyg [Prostate Health Caplet] 1 each PO DAILY 01/09/19 Ubidecarenone/Vit E Acet [Co Q-10 100 mg Softgel] 1 each PO DAILY 01/09/19 Metronidazole 500 mg PO TID #9 tablet 01/11/19 The following prescriptions were given: Metronidazole 500 mg PO TID #9 tablet Primary Care Physician: Ludwig Diehl DO [Primary Care Provider] - Within 2 Weeks Test Results: Test results from this visit will be discussed in further detail at your follow- up appointment, if applicable. Please Follow Up With: Naima Mas MD When: call office in 1 week for results of biopsy. Proposed Discharge Date: 01/11/19
--- NOTE | 2019-01-11 13:01 | PCM.DC.SUM ---
Discharge Date and Diagnosis - Problem List Patient Problems: Active and Suspected Problems (Last Reviewed 01/09/19 @ 12:03 by Scooter Burch DO) GI bleed (Acute) Date of Admission: 01/09/19 Date of Discharge: 01/11/19 - Primary Discharge Diagnosis Active and Suspected Problems (Last Reviewed 01/09/19 @ 12:03 by Scooter Burch DO) GI bleed (Acute) 1. GI bleed appears to be resolved 2/2 colitis + antiplatelet medications Seen by general surgery and plan is for endoscopy on the . Per surgery, ok to resume ASA. Resume Plavix in 1 week. 2. acute blood loss anemia Hg 10.1, down from 11.9. no indication for transfusion. monitor. 3. Colitis DW Dr. Mas, STACY cipro and 3 more days of metronidazole Since he doesn't have a phone, advised to contact Dr. Mas's office for biopsy results. 4. CAD: continue ASA and statin. Resume Plavix in 1 week. - Secondary Discharge Diagnosis Chronic Problems (Last Reviewed 01/09/19 @ 12:03 by Scooter Burch DO) Hyperlipidemia (Chronic) Atherosclerosis of coronary artery of [place] heart without angina pectoris (Chronic) History of coronary artery stent placement (Chronic 03/04/17) Pci-BERNARDO-Cx w/ 3.0 x 24 mm Synergy 03/04/17 RBBB (Chronic) Hypertension (Chronic) CVA (cerebral vascular accident) (Chronic ~12/2013) Hospital Course and Treatment Imaging Results: Clinical Impression(s) from Imaging Studies Abdomen/Pelvis CT 01/09/19 07:13 IMPRESSION: 1. Scattered colonic diverticuli without evidence for acute inflammatory change. There is no visualized colonic mass. 2. Old granulomatous disease. 3. Retrocardiac hernia of retroperitoneal fat. The stomach is normal position. 4. Degenerative changes of the lumbar spine. 5. Atherosclerotic changes of the aorta. Electronically Signed: Aaron Manning DO at 8:07 EDT Tel [phone], Service support , Kaylee Mas MD: general surgery. Operations: None Procedures: Colonoscopy, EGD Summary of Care Provided: The patient is a 78 year old M presents with GI bleed. GI bleed due to colitis + NSAID use. Colonoscopy on 01/10 showed erythema at ileocecal valve. Hemoglobin dropped, but stabilized, no transfusion necessary.[] Patient Problems: Active and Suspected Problems (Last Reviewed 01/09/19 @ 12:03 by Scooter Burch DO) GI bleed (Acute) - Physical Exam General: Alert, No apparent distress HEENT: Atraumatic, Normocephalic Oral: Moist Mucosa, No Gingival or Mucosal Lesions/ Ulcerations Neck: No Nodes, Thyroid Normal Size and Texture Lungs: Clear to auscultation, Normal air movement, No rhonchi, No wheeze Cardiovascular: Regular rate, Regular Rhythm, Normal S1, Normal S2, No murmurs Abdomen: Bowel Sounds Present, Soft, Non Tender, Non-Distended, No Hepato-splenomegaly Vital Signs Temp Pulse Resp BP Pulse Ox 36.9 C 91 20 H 128/72 H 94 01/11/19 08:00 01/11/19 09:55 01/11/19 08:00 01/11/19 09:55 01/11/19 08:00 Oxygen Delivery Method Room Air Weight: 70.5 kg Body Mass Index (BMI) 23.6 Intake and Output for Last 24 Hours 01/09/19 01/10/19 01/11/19 23:59 23:59 23:59 Intake Total 3053 / 3053 3568 / 3568 2972 / 2972 Output Total 1999 / 1999 4350 / 4350 3475 / 3475 Balance 1053 / 1053 -782 / -782 -503 / -503 Microbiology Past 72 Hours 01/09/19 06:50 Stool Occult Blood (AMY) - Final Stool Occult Blood Positive Laboratory Tests Past 24 Hrs 01/11/19 07:10 WBC 13.9 H RBC 3.55 L Hgb 10.6 L Hct 30.7 L MCV 86.5 MCH 29.9 MCHC 34.5 RDW 13.4 RDW Differential 42.7 Plt Count 267 MPV 9.4 Immature Gran % (Auto) 1.200 H Neut % (Auto) 64.4 Lymph % (Auto) 23.0 [place] % (Auto) 9.6 Eos % (Auto) 1.4 Baso % (Auto) 0.4 Absolute Neuts (auto) 8.9 H Absolute Lymphs (auto) 3.20 Total Counted Not Reportable Differential Comment COMMENT Discharge Diet: Low fat/ Low Cholesterol Discharge Activity: Return to Normal Activity Call your doctor if you observe: - - rectal bleeding. dark tarry stools. worsening abdominal pain Home Medications: Medications to take at Discharge Lansoprazole [Prevacid] 15 mg PO DAILY PRN PRN 03/03/17 Aspirin E.C. [Ecotrin] 81 mg PO DAILY@0800 #30 tab 03/05/17 Nitroglycerin (INPATIENT USE) [Nitrostat] 0.4 mg SUBLINGUAL Q5M PRN #30 tab 03/05/17 atorvastatin 40 mg tablet 40 mg PO QDAY #90 tab 02/10/18 clopidogrel 75 mg tablet 75 mg PO QDAY #90 tab 03/26/18 metoprolol tartrate 25 mg tablet 12.5 mg PO BID #90 tab 03/26/18 Saw/Vit E/Sod Gila/Lyc/Beta/Pyg [Prostate Health Caplet] 1 each PO DAILY 01/09/19 Ubidecarenone/Vit E Acet [Co Q-10 100 mg Softgel] 1 each PO DAILY 01/09/19 Metronidazole 500 mg PO TID #9 tablet 01/11/19 Following Prescrptions Were Given to Patient: Metronidazole 500 mg PO TID #9 tablet Primary Care Physician: Ludwig Diehl DO [Primary Care Provider] - Within 2 Weeks Please Follow Up With: Naima Mas MD When: call office in 1 week for results of biopsy. Disposition: Home Minutes spent on discharge:: 32 Patient Condition:: Good Medical Necessity - Tobacco Use Smoking Status: Former smoker Tobacco Use: Chew Meaningful Use Info Meaningful Use Diagnoses (Choose all that apply): None applicable Code Visit Inpatient E&M: 24664 Disch Hosp
--- NOTE | 2019-01-11 13:06 | DS.PCM_ITS ---
Discharge Date and Diagnosis - Problem List Patient Problems: Active and Suspected Problems (Last Reviewed 01/09/19 @ 12:03 by Scooter Burch DO) GI bleed (Acute) Date of Admission: 01/09/19 Date of Discharge: 01/11/19 - Primary Discharge Diagnosis Active and Suspected Problems (Last Reviewed 01/09/19 @ 12:03 by Scooter Burch DO) GI bleed (Acute) 1. GI bleed * appears to be resolved * 2/2 colitis + antiplatelet medications * Seen by general surgery and plan is for endoscopy on the . * Per surgery, ok to resume ASA. Resume Plavix in 1 week. 2. acute blood loss anemia * Hg 10.1, down from 11.9. no indication for transfusion. monitor. 3. Colitis * DW Dr. Mas, STACY cipro and 3 more days of metronidazole * Since he doesn't have a phone, advised to contact Dr. Mas's office for biopsy results. 4. CAD: * continue ASA and statin. Resume Plavix in 1 week. - Secondary Discharge Diagnosis Chronic Problems (Last Reviewed 01/09/19 @ 12:03 by Scooter Burch DO) Hyperlipidemia (Chronic) Atherosclerosis of coronary artery of [place] heart without angina pectoris (Chronic) History of coronary artery stent placement (Chronic 03/04/17) Pci-BERNARDO-Cx w/ 3.0 x 24 mm Synergy 03/04/17 RBBB (Chronic) Hypertension (Chronic) CVA (cerebral vascular accident) (Chronic ~12/2013) Hospital Course and Treatment Imaging Results: Clinical Impression(s) from Imaging Studies Abdomen/Pelvis CT 01/09/19 07:13 IMPRESSION: 1. Scattered colonic diverticuli without evidence for acute inflammatory change. There is no visualized colonic mass. 2. Old granulomatous disease. 3. Retrocardiac hernia of retroperitoneal fat. The stomach is normal position. 4. Degenerative changes of the lumbar spine. 5. Atherosclerotic changes of the aorta. Electronically Signed: Aaron Manning DO at 8:07 EDT Tel [phone], Service support , Kaylee Mas MD: general surgery. Operations: None Procedures: Colonoscopy, EGD Summary of Care Provided: The patient is a 78 year old M presents with GI bleed. GI bleed due to colitis + NSAID use. Colonoscopy on 01/10 showed erythema at ileocecal valve. Hemoglobin dropped, but stabilized, no transfusion necessary.[] Patient Problems: Active and Suspected Problems (Last Reviewed 01/09/19 @ 12:03 by Scooter Burch DO) GI bleed (Acute) - Physical Exam General: Alert, No apparent distress HEENT: Atraumatic, Normocephalic Oral: Moist Mucosa, No Gingival or Mucosal Lesions/ Ulcerations Neck: No Nodes, Thyroid Normal Size and Texture Lungs: Clear to auscultation, Normal air movement, No rhonchi, No wheeze Cardiovascular: Regular rate, Regular Rhythm, Normal S1, Normal S2, No murmurs Abdomen: Bowel Sounds Present, Soft, Non Tender, Non-Distended, No Hepato- splenomegaly Vital Signs Temp Pulse Resp BP Pulse Ox 36.9 C 91 20 H 128/72 H 94 01/11/19 08:00 01/11/19 09:55 01/11/19 08:00 01/11/19 09:55 01/11/19 08:00 Oxygen Delivery Method Room Air Weight: 70.5 kg Body Mass Index (BMI) 23.6 Intake and Output for Last 24 Hours 01/09/19 01/10/19 01/11/19 23:59 23:59 23:59 Intake Total 3053 / 3053 3568 / 3568 2972 / 2972 Output Total 1999 / 1999 4350 / 4350 3475 / 3475 Balance 1053 / 1053 -782 / -782 -503 / -503 Microbiology Past 72 Hours 01/09/19 06:50 Stool Occult Blood (AMY) - Final Stool Occult Blood Positive Laboratory Tests Past 24 Hrs 01/11/19 07:10 WBC 13.9 H RBC 3.55 L Hgb 10.6 L Hct 30.7 L MCV 86.5 MCH 29.9 MCHC 34.5 RDW 13.4 RDW Differential 42.7 Plt Count 267 MPV 9.4 Immature Gran % (Auto) 1.200 H Neut % (Auto) 64.4 Lymph % (Auto) 23.0 [place] % (Auto) 9.6 Eos % (Auto) 1.4 Baso % (Auto) 0.4 Absolute Neuts (auto) 8.9 H Absolute Lymphs (auto) 3.20 Total Counted Not Reportable Differential Comment COMMENT Discharge Diet: Low fat/ Low Cholesterol Discharge Activity: Return to Normal Activity Call your doctor if you observe: - - rectal bleeding. dark tarry stools. worsening abdominal pain Home Medications: Medications to take at Discharge Lansoprazole [Prevacid] 15 mg PO DAILY PRN PRN 03/03/17 Aspirin E.C. [Ecotrin] 81 mg PO DAILY@0800 #30 tab 03/05/17 Nitroglycerin (INPATIENT USE) [Nitrostat] 0.4 mg SUBLINGUAL Q5M PRN #30 tab 03/05/17 atorvastatin 40 mg tablet 40 mg PO QDAY #90 tab 02/10/18 clopidogrel 75 mg tablet 75 mg PO QDAY #90 tab 03/26/18 metoprolol tartrate 25 mg tablet 12.5 mg PO BID #90 tab 03/26/18 Saw/Vit E/Sod Gila/Lyc/Beta/Pyg [Prostate Health Caplet] 1 each PO DAILY 01/09/19 Ubidecarenone/Vit E Acet [Co Q-10 100 mg Softgel] 1 each PO DAILY 01/09/19 Metronidazole 500 mg PO TID #9 tablet 01/11/19 Following Prescrptions Were Given to Patient: Metronidazole 500 mg PO TID #9 tablet Primary Care Physician: Ludwig Diehl DO [Primary Care Provider] - Within 2 Weeks Please Follow Up With: Naima Mas MD When: call office in 1 week for results of biopsy. Disposition: Home Minutes spent on discharge:: 32 Patient Condition:: Good Medical Necessity - Tobacco Use Smoking Status: Former smoker Tobacco Use: Chew Meaningful Use Info Meaningful Use Diagnoses (Choose all that apply): None applicable Code Visit Inpatient E&M: 62657 Disch Hosp
[2019-01-11 13:30] VITALS: BP 127/62; PULSE 83; RESP 16; TEMP 36.8; O2SAT 95
== END 2019-01-11 14:31 | disposition home or self-care (01) | DRG 392 ==
LOC: ED 07:26 → PCU 12:18
PROVIDERS: Surgery; Emergency Provider Emergency Medicine; Family Provider Family Medicine; PCP Family Medicine
PROC: 0DJD8ZZ Inspection of Lower Intestinal Tract, Via Natural or Artificial Opening Endoscopic (ICD-10-PCS; CPT 45378; principal; 2019-01-10 12:55)
DX: K52.9 Noninfective gastroenteritis and colitis, unspecified (principal); D62 Acute posthemorrhagic anemia; I25.10 Atherosclerotic heart disease of native coronary artery without angina pectoris; K44.9 Diaphragmatic hernia without obstruction or gangrene; K29.70 Gastritis, unspecified, without bleeding; K57.30 Diverticulosis of large intestine without perforation or abscess without bleeding; E78.5 Hyperlipidemia, unspecified; Z86.73 Personal history of transient ischemic attack (TIA), and cerebral infarction without residual deficits; Z79.82 Long term (current) use of aspirin; Z95.5 Presence of coronary angioplasty implant and graft; Z79.02 Long term (current) use of antithrombotics/antiplatelets; I10 Essential (primary) hypertension; I45.10 Unspecified right bundle-branch block; T39.395A Adverse effect of other nonsteroidal anti-inflammatory drugs [NSAID], initial encounter
CPT/HCPCS: 36415; 74176; 80048; 81001; 82274; 84484; 85014; 85018; 85025; 86850; 86900; 88305; 88313; 88342; 93005; 99285; J7030; J7040; P9612; A4216; J0744; J3490

== ENCOUNTER → 2022-02-11 | Outpatient (CLI) | payer SELFPAY ==
[2017-03-04 14:13] VITALS: BMI 25.4
--- NOTE | 2022-02-11 11:48 | ECHOD_ITS ---
Reason For Study: MURMUR Procedure This was a 2D Doppler, Color Flow transthoracic echocardiogram. Exam performed in department. Left Ventricle Normal LV size. Left ventricular systolic function is normal. The estimated ejection fraction is 70 %. No regional wall motion abnormalities noted. Right Ventricle Normal RV size. Normal systolic function. Atria Normal left atrium. Normal right atrium. Mitral Valve There is mild mitral annular calcification. Tricuspid Valve Normal tricuspid valve. Mild (1+) tricuspid valve insufficiency. Pulmonary artery systolic pressure is 30 mmHg. Aortic Valve Trisinus/trileaflet aortic valve. Mild focal aortic valve calcification. Great Vessels Normal aortic root. The pulmonary artery is normal size. Normal inferior vena cava. Pericardium/Pleural No pericardial effusion. MMode/2D Measurements & Calculations LVIDd: 4.0 cm IVSd: 1.2 cm LVOT diam: 2.0 cm LVIDs: 2.6 cm LVPWd: 1.1 cm LVOT area: 3.1 cm2 RVDd: 3.4 cm FS: 33.4 % Ao root diam: 3.7 cm LAV(MOD-bp): 36.2 ml LVAd ap4: 19.6 cm2 LAV(MOD-bp) Indexed: 19.4 ml/m2 LVLd ap4: 6.8 cm LAV(MOD-sp2): 32.5 ml EDV(MOD-sp4): 45.1 ml LAV(MOD-sp4): 39.9 ml EDV(sp4-el): 48.0 ml LVAs ap4: 10.1 cm2 LVLs ap4: 5.6 cm ESV(MOD-sp4): 15.0 ml ESV(sp4-el): 15.6 ml EF(MOD-sp4): 66.8 % EF(sp4-el): 67.5 % SV(MOD-sp4): 30.1 ml SV(sp4-el): 32.4 ml Aortic Valve Planimetry: 1.8 cm2 LA A4 area: 16.4 cm2 LA dimension(2D): 3.4 cm RA A4 area: 12.9 cm2 Time Measurements MV dec time: 0.41 sec Doppler Measurements & Calculations MV E max tom: 63.2 cm/sec Lat Peak E' Tom: 4.3 cm/sec Med Peak E' Tom: 4.5 cm/sec MV A max tom: 127.9 cm/sec E/E' lat: 14.6 E/E' med: 14.0 MV E/A: 0.49 Ao V2 max: 233.4 cm/sec LV V1 max: 149.3 cm/sec SV(LVOT): 98.6 ml Ao max P.8 mmHg LV V1 max P.9 mmHg Ao V2 mean: 162.4 cm/sec LV V1 mean P.5 mmHg Ao mean P.0 mmHg LV V1 mean: 97.2 cm/sec Ao V2 VTI: 49.2 cm LV V1 VTI: 31.6 cm RASHAAD(I,D): 2.0 cm2 RASHAAD(V,D): 2.0 cm2 PA V2 max: 91.6 cm/sec TR max tom: 258.2 cm/sec MV P1/2t-pr_phl: 116.6 msec TR max P.7 mmHg ECHO/Echo Complete Interpretation Summary Normal LV size. Left ventricular systolic function is normal. The estimated ejection fraction is 70 %. Mild focal aortic valve calcification. Pulmonary artery systolic pressure is 30 mmHg. Ordering Physician: Po Lopez Referring Physician: GEORGE RODRIGUEZ Performed By: Tessa Pichardo RDCS
== END | disposition home or self-care (01) ==
PROVIDERS: PCP Family Medicine; Referring Provider Internal Medicine Cardiovascular Disease; Visit Provider Internal Medicine Cardiovascular Disease
DX: R01.1 Cardiac murmur, unspecified (principal); Z95.5 Presence of coronary angioplasty implant and graft
CPT/HCPCS: 93306

== ENCOUNTER 2022-12-17 05:04 | Emergency (ER) | payer OTHER, SELFPAY ==
[2017-03-04 14:13] VITALS: BMI 25.4
[2022-12-17 05:06] VITALS: BP 169/75; PULSE 67; RESP 18; TEMP 36.2; O2SAT 94; BMI 26.6
--- NOTE | 2022-12-17 05:29 | RAD_ITS ---
INDICATION: pain EXAMINATION/TECHNIQUE: X-RAY - RIGHT XR Shoulder Min 2 Views 2 VIEWS COMPARISON: Chest radiograph March 03, 2017 FINDINGS: SOFT TISSUES: No soft tissue swelling or gas. No radiopaque foreign body. Aortic arch atherosclerosis BONES/JOINTS: No acute fracture. No Hill-Sachs or Bankart lesion... Normal glenohumeral and acromioclavicular alignment with mild osteophyte formation. No sclerotic or destructive changes observed. RAD/Shoulder min 2 Views IMPRESSION: No evidence of acute injury Electronically Signed: Oscar Arguelles MD at 6:26 EDT ,
--- NOTE | 2022-12-17 05:29 | CT_ITS ---
INDICATION: Midline pain EXAMINATION: CT CERVICAL SPINE - CT Spine Cervical W/O Contrast Injection TECHNIQUE: Helically acquired images were obtained of the cervical spine. 2D reformatted images were reviewed. A radiation dose optimization technique was used for this scan. IV Contrast dosage and agent: None. COMPARISON: CT head on same day. FINDINGS: VERTEBRAE: Acute C4 spinous process tip fracture and C5 spinous process base fracture. Acute fracture at the left anterior C5 vertebral body base of osteophyte, axial image 99. Linear likely mineralization at the anterior superior corner of C4. Preserved cervical lordosis. Exaggerated anterior disc spacing at C3-4 and C4-C5 of unknown chronicity. Minimal likely degenerative grade 1 anterolisthesis C3 on C4 and C4 on C5 secondary to facet arthropathy. No aggressive osseous lesion. . DISCS and SPINAL CANAL: Multilevel small posterior disc osteophyte complexes most prominent C5-C6 with mild spinal canal stenosis. No CT evidence of critical spinal canal stenosis. Diffuse neural foraminal stenosis due to facet arthropathy and disc osteophyte complex up to moderate to severe at left C4-C5 and C5-C6 NECK SOFT TISSUES: No gross prevertebral soft tissue swelling. There is no cervical adenopathy. LUNG APICES: Clear. CT/Spine Cervical without Contras IMPRESSION: Acute posterior spinous process fractures of C4 and C5 with anterior inferior endplate corner fracture at C5 compatible with extension injury. Exaggerated anterior disc spacing at C3-4 and C4-5 is nonspecific however would recommend MRI of the cervical spine to exclude ligamentous injury. Spondylosis as above. N.B. : The above Results were Read Back by Oscar Arguelles MD to Aureliano Coppola DO, and understanding confirmed on 12/17/2022 06:58:30 (ET). Electronically Signed: Oscar Arguelles MD at 7:04 EDT ,
--- NOTE | 2022-12-17 05:29 | RAD_ITS ---
INDICATION: pain EXAMINATION/TECHNIQUE: X-RAY - RIGHT XR Hand Min 3 Views 3 VIEWS COMPARISON: None FINDINGS: SOFT TISSUES: Dorsal mid hand soft tissue edema most prominent superficial to the metacarpal heads.. No radiopaque foreign body. BONES/JOINTS: No acute fracture.. Normal alignment. Preservation of the joint space.. No sclerotic or destructive changes observed. RAD/Hand Min 3 Views IMPRESSION: Dorsal hand edema without evidence of underlying osseous injury.. Electronically Signed: Oscar Arguelles MD at 6:24 EDT ,
--- NOTE | 2022-12-17 05:29 | RAD_ITS ---
INDICATION: pain EXAMINATION/TECHNIQUE: X-RAY - XR Ribs Unilateral W/ PA Chest Min 3 Views: Frontal chest with 4 view right rib series COMPARISON: None. FINDINGS: SOFT TISSUES: No soft tissue swelling or gas. BONES: No fracture lucency or cortical step-off. No sclerotic or destructive changes observed. VISUALIZED LUNGS: Clear. No pneumothorax. RAD/Ribs Uni Min 3V w/PA Chest IMPRESSION: No evidence of rib fracture or acute cardiopulmonary process. Electronically Signed: Oscar Arguelles MD at 6:32 EDT ,
--- NOTE | 2022-12-17 05:29 | CT_ITS ---
INDICATION: head injury EXAMINATION: CT BRAIN - CT Head or Brain W/O Contrast Injection TECHNIQUE: Multiple axial images were obtained of the head without intravenous contrast. A radiation dose optimization technique was used for this scan. IV Contrast dosage and agent: None. COMPARISON: None FINDINGS: BRAIN PARENCHYMA: Large left hemispheric mixed attenuation subdural hematoma measuring 2.2 cm maximum thickness, best assessed on coronal reformats with most acute blood located anteriorly along the left frontal region superficial to nondisplaced fracture, axial image 27 series 4. Up to 9 mm left to right midline shift. Partial effacement left suprasellar cisterns. Dyer-white matter differentiation is preserved. No evidence of intraparenchymal or ventricular hemorrhage. No hydrocephalus. Mild periventricular hypodense chronic small vessel white matter ischemic change. No other acute osseous finding. Mastoid air cells and are clear. Minimal ethmoid air cell mucoperiosteal thickening. No acute orbital finding. 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 Carotid and vertebral atherosclerosis. ASPECTS Score for Acute Strokes: NA, hemorrhage CT/Brain/Head without Contrast IMPRESSION: Mixed attenuation acute on subacute left hemispheric subdural hematoma, most acute anteriorly superficial to a small nondisplaced left frontal fracture. 9 mm [id number] subfalcine herniation with partial effacement of the left suprasellar cistern. N.B. : The above Results were Read Back by Oscar Arguelles MD to Aureliano Coppola DO, and understanding confirmed on 12/17/2022 06:49:45 (ET). Electronically Signed: Oscar Arguelles MD at 6:51 EDT ,
[2022-12-17] MEDS: Morphine 4 MG/ML Syringe IM (05:51)
[2022-12-17] MEDS: Ondansetron ODT 4 MG Tablet PO (05:51)
[2022-12-17 07:02] VITALS: BP 160/78; PULSE 75; RESP 18; O2SAT 92
--- NOTE | 2022-12-17 07:05 | ED.RN ---
CALLED TRANSFER LINE, FAXED FACESHEET AND HAD RADIOLOGY PUSH EVERYTHING THEY HAD
[2022-12-17 07:07] LABS: Absolute Lymphocyte Count 1.28 X10^3/uL (0.83-4.51); Absolute Neutrophil Count 11.3 X10^3/uL (2.0-7.7); Basophil# 0.05 X10^3/uL; Basophil% 0.4 % (0-1); Eosinophil# 0.07 X10^3/uL; Eosinophils% 0.5 % (0-5); Hematocrit 39.8 % (40-54); Lymphocyte # 1.28 X10^3/ul (0.83-4.51); Lymphocyte % 9.5 % (19-41); Mean Corp Hgb Conc 32.7 g/dL (32-36); Mean Corpuscular Hgb 28.8 pg (27.0-32.0); Mean Corpuscular Volume 88.1 fL (80-94); Mean Platelet Vol. 9.7 fl (6.2-12.0); Monocyte# 0.67 X10^3/uL; NRBC Flagged by Analyzer 0 % (0-5); Neutrophil # 11.33 X10^3/uL (2.7-7.7); Neutrophil % 84.2 % (47-70); Platelet Count 274 K/mm3 (150-450); RBC Distribution Width CV 13.2 % (11.6-14.6); Red Blood Count 4.52 M/mm3 (4.6-6.2); White Blood Count 13.5 K/mm3 (4.4-11.0)
[2022-12-17 07:21] LABS: Anion Gap 2 (5-15); BUN 17 mg/dL (7-18); BUN/Creat Ratio 19.9 RATIO (10-20); Calcium,Total 8.8 mg/dL (8.5-10.1); Chloride 105 mmol/L (98-107); Creatinine, Serum 0.86 mg/dL (0.70-1.30); EST Glomerular Filtration Rate 91 mL/min (>60); Est Glom Filt Rate - Afr Amer 110 mL/min (>60); Estimated Creatinine Clearance 59.76 ml/min; Glucose 126 mg/dL (74-106); Potassium 4.1 mmol/L (3.5-5.1); Sodium Level 135 mmol/L (136-145)
[2022-12-17 07:22] LABS: International Normalized Ratio 1.1; Partial Thromboplast Time 33.8 Seconds (24.1-36.2)
--- NOTE | 2022-12-17 07:27 | EDS_ITS ---
HPI History of Present Illness Chief Complaint: Fall Narrative Narrative: Patient is an 82-year-old [place] male who has a past medical history of hypertension hyperlipidemia previous CVA in 2013 and CAD with stent placement in 2016. Secondary to this he is on metoprolol atorvastatin as well as full- strength aspirin and 75 mg of Plavix. Patient states Thursday night around 1030 he had stood up to go to the bathroom and lost his balance and fell down. He states that he was able to get back up and get into bed and did not tell family about it until Thursday afternoon. Family states the patient's been complaining of pain in his right shoulder and hand that has not improved over the past couple days and with concern for underlying injury he was brought in for evaluation [facility] Medical History Aortic annular calcification Atherosclerosis of coronary artery of [place] heart without angina pectoris Cardiac murmur CVA (cerebral vascular accident) (12/2013) Diverticulosis Essential (primary) hypertension GI bleed (01/09/19) History of non-ST elevation myocardial infarction (NSTEMI) (03/03/17) Hyperlipidemia Right bundle branch block (RBBB) Home Medications lansoprazole 15 mg capsule,delayed release 15 mg PO DAILY PRN PRN reflux 03/03/17 [History Last Taken Unknown] nitroglycerin 0.4 mg sublingual tablet 0.4 mg sublingual Q5M PRN Chest Pain #30 tabs 03/05/17 [Rx Last Taken Unknown] coenzyme X24-zapzase E 100 mg-5 unit capsule 1 ea PO DAILY preventative 01/09/19 [History Last Taken Unknown] saw palm 160 mg-vit E 100 unit-selen 100 lpj-xjiv-lcehzd-pygeum tablet 1 ea PO DAILY prostate 01/09/19 [History Last Taken 01/07/19 20:00] ferrous sulfate 325 mg (65 mg iron) tablet (Feosol) 325 mg PO BID 02/09/19 [History Last Taken Unknown] aspirin 325 mg tablet 325 mg PO Q4H 02/06/21 [History Last Taken Unknown] cod liver oil 1 cap PO DAILY 02/06/21 [History Last Taken Unknown] atorvastatin 40 mg tablet 40 mg PO QDAY #90 tabs 02/11/22 [Rx Last Taken Unknown] clopidogrel 75 mg tablet (Plavix) 75 mg PO QDAY #90 tabs 02/11/22 [Rx Last Taken Unknown] metoprolol tartrate 25 mg tablet 12.5 mg PO BID #90 tabs 02/11/22 [Rx Last Taken Unknown] Allergy/AdvReac Type Severity Reaction Status Date / Time pravastatin AdvReac myalgias Verified 11/10/22 11:00 Sulfa (Sulfonamide AdvReac NEEDS Verified 12/17/22 05:16 Antibiotics) FOLLOW-UP Family History Father CAD (coronary artery disease) Surgical History History of coronary artery stent placement (03/04/17) Social History Smoking Status: Never smoker ROS ROS ED Constitutional Constitutional ED: Denies chills or fever(s) Eyes Eyes: Denies change in vision ENT ENT ED: Denies sore throat Cardiovascular Cardiovascular: Denies chest pain Respiratory/Chest Respiratory/Chest: Denies cough or dyspnea Gastrointestinal Gastrointestinal: Denies abdominal pain, diarrhea, nausea or vomiting Genitourinary Genitourinary ED: Denies dysuria Musculoskeletal Musculoskeletal: Reports back pain, neck pain and other Details: Positive right shoulder and right hand pain Integumentary Reports Abrasions Neurologic Neurologic: Denies headache(s), paresthesias or weakness Hematologic/Lymphatic Hematologic/Lymphatic: Reports easy bleeding and easy bruising EXAM Physical Exam Const Vital Signs: 12/17/22 05:06 12/17/22 05:06 12/17/22 07:02 Temperature 97.2 F L Temperature Source Temporal Pulse Rate 67 75 Respiratory Rate 18 18 Respiratory Effort Normal Respiratory Depth Normal Respiratory Pattern Normal Blood Pressure 169/75 H 160/78 H Blood Pressure Mean 106 105 Pulse Ox 94 92 Oxygen Delivery Method Room Air Room Air Room Air Positive well nourished and well developed General Appearance ED: well developed HEENT HEENT Narrative: No signs of depressed or basilar skull fracture Eyes PERRL and EOMs intact bilaterally Neck Neck Narrative: No bony deformity or step-off of the cervical spine but there is midline pain with palpation. Chest Wall Chest Narrative: There is pain with palpation along the right posterior chest wall rib regions 7- 9 without bony deformity or crepitus noted Resp normal respiratory effort and clear to auscultation bilaterally Cardio regular rate and regular rhythm Rate: other Other Details: Radial pulses are plus 2 out of 4 bilaterally are equal and symmetric GI normal to inspection, nondistended, normoactive bowel sounds, non-tender, non- distended and no masses GI Narrative: No voluntary guarding or rigidity no pulsatile mass Auscultation: normoactive bowel sounds Palpation: soft Back/Spine Back/Spine Narrative: No bony deformity or step-off of the thoracic or lumbar spine no midline pain with palpation Extremity Extremity Narrative: Patient has soft tissue swelling with ecchymosis to the dorsal aspect of his right hand greatest over top of the fifth metacarpal without obvious bony deformity or joint effusion. The right upper extremity is neurovascular intact. There is no sulcus sign noted. Active range of motion is decreased secondary to pain at the shoulder joint but there is full passive range of motion. Remainder of the extremity exam is normal Neuro oriented x3 and CN's II-XII intact bilaterally Neuro Narrative: GCS of 15. Cranial nerves II through XII are grossly intact no focal neurologic deficit. Patient does have decreased range of motion of the right arm but this is secondary to pain and not neurologic weakness. Sensorium / Orientation: alert Psych mental status grossly normal Psych Narrative: Patient has a flat affect Skin Skin Narrative: Skin is pale in color. Ecchymosis and soft tissue swelling over the dorsal aspect of the right hand as documented above MDM MDM MDM Narrative Medical decision making narrative: Patient presented to the ER slightly hypertensive but has a past medical history of this and did not take his daily medication this morning. He has no signs of depressed or basilar skull fracture but with the report of fall on Thursday evening and the fact he is on aspirin and Plavix I did elect to perform CTs of the head and cervical spine to rule out underlying skull fracture/brain bleed or cervical spine injury. Also with pain in the right shoulder and hand x-rays were obtained. Differential includes subdural versus epidural hematoma cervical spine fracture right shoulder dislocation right metacarpal fracture. Imaging studies were obtained and the CT of the head does show an acute versus subacute subdural hematoma despite the large herniation patient remains neurovascularly intact with GCS of 15 NIH stroke scale score of 0 and no airway compromise. CT of the neck revealed multiple fractures as well and therefore c-collar was placed. As the patient is on Plavix as well as aspirin DDAVP was started. We do not keep traumas or brain injury in the hospital at this facility and therefore [facility] was contacted and they do agree to accept the patient. Initially his pressure was elevated but as time passed it now process systolic value of 140 which is acceptable blood pressure with his recent bleed. The case was discussed with family and patient and they are agreeable to transfer. They do request that he go by ground and they do not want to fly. Therefore at this time patient's blood pressure will be monitored and he will be given doses of antihypertensive occasion if needed. The patient is a full code and therefore if his respiratory and mental status diminishes he can undergo intubation. However at this time as his GCS is 15 and he has no respiratory distress there is no need for intervention at this time. History & Record Review Discussion w/independent historian: Patient and Family Lab Data Attestation: I reviewed the patient's lab results. Labs: Laboratory Results - last 24 hr 12/17/22 12/17/22 12/17/22 07:02 07:02 07:02 WBC 13.5 H RBC 4.52 L Hgb 13.0 Hct 39.8 L MCV 88.1 MCH 28.8 MCHC 32.7 RDW Std Deviation 43.0 RDW Coeff of Michelle 13.2 Plt Count 274 MPV 9.7 Immature Gran % (Auto) 0.400 Neut % (Auto) 84.2 H Lymph % (Auto) 9.5 L [place] % (Auto) 5.0 Eos % (Auto) 0.5 Baso % (Auto) 0.4 Absolute Neuts (auto) 11.3 H Absolute Lymphs (auto) 1.28 Nucleated RBC % 0 PT 14.0 INR 1.1 APTT 33.8 Sodium 135 L Potassium 4.1 Chloride 105 Carbon Dioxide 28.0 Anion Gap 2 L BUN 17 Creatinine 0.86 Estim Creat Clear Calc 59.76 Est GFR (MDRD) Af Amer 110 Est GFR (MDRD) Non-Af 91 BUN/Creatinine Ratio 19.9 Glucose 126 H Calcium 8.8 Radiography Diagnostic Testing: Clinical Impression(s) from Imaging Studies Brain CT 12/17/22 05:29 IMPRESSION: Mixed attenuation acute on subacute left hemispheric subdural hematoma, most acute anteriorly superficial to a small nondisplaced left frontal fracture. 9 mm sill-gm-mfabl subfalcine herniation with partial effacement of the left suprasellar cistern. N.B. : The above Results were Read Back by Oscar Arguelles MD to Aureliano Coppola DO, and understanding confirmed on 12/17/2022 06:49:45 (ET). Electronically Signed: Oscar Arguelles MD at 6:51 EDT , ADDENDUM: 12/17/22 0658 IMPRESSION: Mixed attenuation acute on subacute left hemispheric subdural hematoma, most acute anteriorly superficial to a small nondisplaced left frontal fracture. 9 mm ujub-ej-wygbi subfalcine herniation with partial effacement of the left suprasellar cistern. N.B. : The above Results were Read Back by Oscar Arguelles MD to Aureliano Coppola DO, and understanding confirmed on 12/17/2022 06:49:45 (ET). Electronically Signed: Oscar Arguelles MD at 6:51 EDT , Cervical Spine CT 12/17/22 05:29 IMPRESSION: Acute posterior spinous process fractures of C4 and C5 with anterior inferior endplate corner fracture at C5 compatible with extension injury. Exaggerated anterior disc spacing at C3-4 and C4-5 is nonspecific however would recommend MRI of the cervical spine to exclude ligamentous injury. Spondylosis as above. N.B. : The above Results were Read Back by Oscar Arguelles MD to Aureliano Coppola DO, and understanding confirmed on 12/17/2022 06:58:30 (ET). Electronically Signed: Oscar Arguelles MD at 7:04 EDT , Hand X-Ray 12/17/22 05:29 IMPRESSION: Dorsal hand edema without evidence of underlying osseous injury.. Electronically Signed: Oscar Arguelles MD at 6:24 EDT , Ribs w/Chest X-Ray 12/17/22 05:29 IMPRESSION: No evidence of rib fracture or acute cardiopulmonary process. Electronically Signed: Oscar Arguelles MD at 6:32 EDT , Shoulder X-Ray 12/17/22 05:29 IMPRESSION: No evidence of acute injury Electronically Signed: Oscar Arguelles MD at 6:26 EDT , X-ray of the right hand as interpreted by the emergency medicine physician reveals no acute fracture or dislocation or foreign body X-ray of the right shoulder as interpreted by the emergency medicine physician reveals no acute fracture or dislocation X-ray of the right ribs with 1 view chest as interpreted by the emergency medicine physician reveals no acute rib fracture or pneumothorax or pleural effusion Critical Care Time Critical Care Time: Yes Critical care time (excluding procedures): Discussing w/Patient &/or Family/Implementation Director, Discussing w/Consultants, Arranging Admission or Transfer and - (Critical care time of 33 minutes) Discharge Plan Triage Chief Complaint: Fall ED Provider: Aureliano Coppola Dx/Rx/DC Orders Clinical Impression: Acute subdural hematoma, Closed cervical spine fracture, Current use of terminal superintendent anticoagulation, Hypertension Prescriptions: No Action ferrous sulfate [Feosol] 325 mg (65 mg iron) tablet 325 mg PO BID cod liver oil Capsule 1 cap PO DAILY aspirin 325 mg tablet 325 mg PO Q4H Rx Instructions: while awake atorvastatin 40 mg tablet 40 mg PO QDAY Qty: 90 3RF clopidogrel [Plavix] 75 mg tablet 75 mg PO QDAY Qty: 90 3RF metoprolol tartrate 25 mg tablet 12.5 mg PO BID Qty: 90 3RF lansoprazole 15 MG capsule 15 mg PO DAILY PRN PRN (Reason: reflux) Label Comments: reflux nitroglycerin 0.4 MG tablet 0.4 mg SUBLINGUAL Q5M PRN (Reason: Chest Pain) Qty: 30 0RF coenzyme [id number] E 1 EACH capsule 1 ea PO DAILY saw-vit E-sod fus-vxt-ozhn-pyg 1 EACH tablet 1 ea PO DAILY Primary Care Provider: Ludwig Diehl Referrals: Ludwig Diehl DO [Primary Care Provider] - Disposition Disposition: Acute Care Hospital Discharge Location: [facility]
== END 2022-12-17 08:49 | disposition short-term general hospital (02) ==
PROVIDERS: Emergency Provider Emergency Medicine; PCP Family Medicine; Visit Provider Emergency Medicine
DX: S06.5X0A Traumatic subdural hemorrhage without loss of consciousness, initial encounter (principal); S12.300A Unspecified displaced fracture of fourth cervical vertebra, initial encounter for closed fracture; S12.400A Unspecified displaced fracture of fifth cervical vertebra, initial encounter for closed fracture; M25.511 Pain in right shoulder; M25.541 Pain in joints of right hand; I10 Essential (primary) hypertension; I25.10 Atherosclerotic heart disease of native coronary artery without angina pectoris; E78.5 Hyperlipidemia, unspecified; Z79.01 Long term (current) use of anticoagulants; Z86.73 Personal history of transient ischemic attack (TIA), and cerebral infarction without residual deficits; Z95.5 Presence of coronary angioplasty implant and graft; Z79.02 Long term (current) use of antithrombotics/antiplatelets; Z79.82 Long term (current) use of aspirin; Z79.899 Other long term (current) drug therapy; W19.XXXA Unspecified fall, initial encounter
CPT/HCPCS: 70450; 71101; 72125; 73030; 73130; 80048; 85025; 85610; 85730; 96365; 96372; 99284; A4216; J2597; J3490

== ENCOUNTER 2022-12-27 01:29 | Emergency (ER) | payer OTHER, SELFPAY ==
[2017-03-04 14:13] VITALS: BMI 25.4
[2022-12-27] VITALS (11 sets, daily range): BP systolic 91–150; BP diastolic 50–125; PULSE 82–101; RESP 15–27; TEMP 36–37.2; O2SAT 92–99; BMI 25.0
--- NOTE | 2022-12-27 02:02 | CT_ITS ---
We are attempting to reach an attending provider to discuss findings. An addendum with communication details will be sent when the communication is complete. INDICATION: gi bleed EXAMINATION: CTA abdomen and pelvis - TECHNIQUE: Routine abdominal CT angiogram protocol was performed with IV contrast. MIP images provided. A radiation dose optimization technique was used for this scan. IV Contrast dosage and agent: RADIATION DOSAGE (If Supplied By Facility): CTDIvol = ( 26.83 ) mGy, DLP = ( 932.85 ) mGycm COMPARISON: FINDINGS: Lung bases: Segmental and subsegmental pulmonary emboli in the right lower lobe. There is an umbilical hernia measures 8.7 cm. Liver: Normal. No bile ductal dilatation. Gallbladder: Normal. Spleen: Normal. Adrenal gland: Normal. Kidneys: Bilateral renal cysts, the largest measures 2 cm. No hydronephrosis or stone formation. Pancreas:Normal. Bowel gas pattern: Diverticulosis of the colon. Large fecal residue in the rectum. Appendix: Normal. Free air: None. Free fluid: None. Pelvis: Pelvic organs: No mass lesion noted. Bone survey: No aggressive bony lesions. No acute fractures. Adenopathy: No significant pathologic adenopathy detected. Other: Small umbilical hernia measuring 3 cm containing fat. Vascular: Moderate atherosclerotic changes, CT/CTA Abd/Pelvis W/WO Contrast IMPRESSION: Segmental and subsegmental pulmonary emboli in the right lower lobe. Bilateral renal cysts, the largest measures 2 cm. Diverticulosis of the colon. There is an umbilical hernia measures 8.7 cm. Small umbilical hernia measuring 3 cm containing fat. Large fecal residue in the rectum. Electronically Signed: Yue Jarvis MD at 4:11 EDT ,
[2022-12-27 02:20] LABS: Hemoglobin 8.4 g/dL (13.0-16.5); Mean Corp Hgb Conc 32.3 g/dL (32-36); Mean Corpuscular Volume 89.7 fL (80-94); Mean Platelet Vol. 9.6 fl (6.2-12.0); POSITIVE COUNT YES; POSITIVE MORPHOLOGY YES; Platelet Count 369 K/mm3 (150-450); RBC Distribution Width CV 13.2 % (11.6-14.6); RBC Distribution Width SD 43.5 fl (35.1-43.9); White Blood Count 23.6 K/mm3 (4.4-11.0)
[2022-12-27 02:22] LABS: Differential Indicated MANUAL DIFF
[2022-12-27 02:34] LABS: AST(SGOT) 20 U/L (15-37); Alanine Aminotransfer ALT/SGPT 51 U/L (16-61); Albumin, Serum 2.8 g/dL (3.2-5.0); Alkaline Phosphatase 64 U/L (45-117); Anion Gap 5 (5-15); BUN 19 mg/dL (7-18); BUN/Creat Ratio 21.6 RATIO (10-20); Bilirubin, Direct 0.09 mg/dL (0.00-0.30); Calcium,Total 8.1 mg/dL (8.5-10.1); Chloride 105 mmol/L (98-107); Creatinine, Serum 0.88 mg/dL (0.70-1.30); EST Glomerular Filtration Rate 88 mL/min (>60); Est Glom Filt Rate - Afr Amer 107 mL/min (>60); Globulin 2.8 g/dL (2.2-4.2); Glucose 201 mg/dL (74-106); Potassium 3.8 mmol/L (3.5-5.1); Protein, Total 5.6 g/dL (6.4-8.2); Sodium Level 134 mmol/L (136-145); Troponin-I HS 15 pg/mL (3.0-78.0)
[2022-12-27 02:50] LABS: International Normalized Ratio 1.2; Prothrombin Time (Protime)PT. 14.7 SECONDS (11.7-14.9)
[2022-12-27 02:51] LABS: Partial Thromboplast Time 26.9 Seconds (24.1-36.2)
[2022-12-27 03:37] LABS: Eosinophil 1 % (0-5); Lymphocyte 12 % (19-41); Metamyelocyte 3 % (0-1); Monocyte 7 % (0-10); Myelocyte 4 % (0-0); Neutrophil-Band 2 % (0-5); Neutrophil-Segmented 71 % (47-70); Platelet Estimate ADEQUATE (ADEQ); Red Cell Morphology NORM C+C NORMAL (NORM C&C); Total Cells Counted 100 (MANUAL DIFF)
[2022-12-27 03:38] LABS: Absolute Lymphocyte Count 2.83 X10^3/uL (0.83-4.51); Absolute Neutrophil Count 17.2 X10^3/uL (2.0-7.7); Lymphocyte # 2.83 X10^3/ul (0.83-4.51); Neutrophil # 17.21 X10^3/uL (2.7-7.7)
[2022-12-27 04:06] LABS: Lactic Acid 2.7 mmol/L (0.4-1.9)
--- NOTE | 2022-12-27 04:57 | ED.RN ---
pt noted to have large bright red bloody stool with clots. evelyne care done and depends changed at this time x 2 assist. Second large bloody stool pt has had in ED
[2022-12-27] MEDS: 0.9% Normal Saline 1,000 ML 999 ML IV (06:31)
[2022-12-27 06:42] LABS: Reflex Lactate? Y
--- NOTE | 2022-12-27 06:42 | NURSING ---
FAXED FACESHEET TO [facility]
--- NOTE | 2022-12-27 07:14 | NURSING ---
[facility], [facility] TRANSFER LINE, FOR DR HU. SIOBHAN ON LINE
--- NOTE | 2022-12-27 07:24 | EX.ED.DYSGE1 ---
HPI History of Present Illness Chief Complaint: GI Bleed Narrative Narrative: Patient is a 82-year-old male with past medical history of previous CVA as well as cardiac stent placement who was recently sent to [facility] secondary to a traumatic subdural hematoma and cervical spine fracture. He was recently discharged home and this evening/morning felt he had to have a bowel movement and when he did so it was bright red blood. He was recently taken off aspirin and Plavix after having a traumatic subdural hematoma on December 17. Patient denies any abdominal pain but with the bright red blood there is concern he may need to be admitted to the hospital and therefore he was brought in for evaluation [facility] Medical History Aortic annular calcification Atherosclerosis of coronary artery of [place] heart without angina pectoris Cardiac murmur CVA (cerebral vascular accident) (12/2013) Diverticulosis Essential (primary) hypertension GI bleed (01/09/19) History of non-ST elevation myocardial infarction (NSTEMI) (03/03/17) Hyperlipidemia Right bundle branch block (RBBB) Home Medications lansoprazole 15 mg capsule,delayed release 15 mg PO DAILY PRN PRN reflux 03/03/17 [History Last Taken Unknown] nitroglycerin 0.4 mg sublingual tablet 0.4 mg sublingual Q5M PRN Chest Pain #30 tabs 03/05/17 [Rx Last Taken Unknown] coenzyme [id number] E 100 mg-5 unit capsule 1 ea PO DAILY preventative 01/09/19 [History Last Taken Unknown] saw palm 160 mg-vit E 100 unit-selen 100 pff-vqiy-fehvqb-pygeum tablet 1 ea PO DAILY prostate 01/09/19 [History Last Taken 01/07/19 20:00] ferrous sulfate 325 mg (65 mg iron) tablet (Feosol) 325 mg PO BID 02/09/19 [History Last Taken Unknown] cod liver oil 1 cap PO DAILY 02/06/21 [History Last Taken Unknown] atorvastatin 40 mg tablet 40 mg PO QDAY #90 tabs 02/11/22 [Rx Last Taken Unknown] metoprolol tartrate 25 mg tablet 12.5 mg PO BID #90 tabs 02/11/22 [Rx Last Taken Unknown] acetaminophen 325 mg tablet 650 mg PO TID 12/27/22 [History Last Taken Unknown] oxycodone 5 mg tablet 2.5 mg PO Q4H PRN Pain 12/27/22 [History Last Taken Unknown] pantoprazole 20 mg tablet,delayed release 40 mg PO BID 12/27/22 [History Last Taken Unknown] Allergy/AdvReac Type Severity Reaction Status Date / Time pravastatin AdvReac myalgias Verified 12/27/22 01:38 Sulfa (Sulfonamide AdvReac NEEDS Verified 12/27/22 01:38 Antibiotics) FOLLOW-UP Family History Father CAD (coronary artery disease) Surgical History History of coronary artery stent placement (03/04/17) Social History Smoking Status: Never smoker ROS ROS ED Constitutional Constitutional ED: Denies chills or fever(s) ENT ENT ED: Denies sore throat Cardiovascular Cardiovascular: Denies chest pain Respiratory/Chest Respiratory/Chest: Denies cough or dyspnea Gastrointestinal Gastrointestinal: Reports other Details: Bright red blood per rectum ; Denies abdominal pain, diarrhea, nausea or vomiting Genitourinary Genitourinary ED: Denies dysuria or hematuria Musculoskeletal Musculoskeletal: Reports neck pain Integumentary Denies rash Neurologic Neurologic: Denies headache(s) Hematologic/Lymphatic Hematologic/Lymphatic: Denies easy bleeding or easy bruising EXAM Physical Exam Const Vital Signs: 12/27/22 01:30 12/27/22 02:20 12/27/22 03:22 Temperature 98.1 F 98.9 F Temperature Source Oral Temporal Temporal Pulse Rate 101 H 89 82 Respiratory Rate 15 24 H 22 H Blood Pressure 115/70 127/72 H 147/80 H Blood Pressure Mean 85 90 102 Blood Pressure Source Monitor Monitor Blood Pressure Position Semi-Fowlers Semi-Fowlers Blood Pressure Location Right Arm Left Arm Pulse Ox 97 99 98 Oxygen Delivery Method Room Air Room Air Room Air 12/27/22 02:35 12/27/22 02:42 12/27/22 02:57 Temperature 97 F L 96.8 F L 96.9 F L Temperature Source Temporal Temporal Temporal Pulse Rate 85 89 82 Respiratory Rate 27 H 27 H 18 Blood Pressure 144/75 H 135/89 H 147/80 H Blood Pressure Mean 98 104 102 Blood Pressure Source Monitor Monitor Monitor Blood Pressure Position Semi-Fowlers Semi-Fowlers Semi-Fowlers Blood Pressure Location Right Arm Pulse Ox 92 93 98 Oxygen Delivery Method Room Air Room Air Room Air 12/27/22 03:29 12/27/22 04:56 12/27/22 05:47 Temperature 97.5 F L Temperature Source Temporal Pulse Rate 90 97 87 Respiratory Rate 26 H 22 H 27 H Blood Pressure 150/125 H 91/62 93/52 L Blood Pressure Mean 133 71 65 Blood Pressure Source Blood Pressure Position Blood Pressure Location Pulse Ox 98 97 97 Oxygen Delivery Method Room Air Room Air Room Air 12/27/22 07:20 Temperature Temperature Source Pulse Rate 94 Respiratory Rate 18 Blood Pressure 115/50 L Blood Pressure Mean 71 Blood Pressure Source Blood Pressure Position Blood Pressure Location Pulse Ox 97 Oxygen Delivery Method Room Air Positive well nourished and well developed General Appearance ED: well developed and diaphoretic HEENT Reports moist mucous membranes Eyes PERRL and EOMs intact bilaterally General Eye ED: Yes pale conjunctiva Neck Neck Narrative: C-collar in place consistent with recent/previous cervical spine fracture Resp clear to auscultation bilaterally Resp Narrative: Patient is tachypneic but otherwise has clear breath sounds throughout Cardio regular rate and regular rhythm GI normal to inspection, nondistended, normoactive bowel sounds, non-tender, non-distended and no masses GI Narrative: No voluntary guarding or rigidity no pulsatile mass Auscultation: normoactive bowel sounds Palpation: soft Narrative: Patient has bright red mucousy stool per rectum Extremity normal to inspection Neuro oriented x3 and CN's II-XII intact bilaterally Sensorium / Orientation: alert Psych mental status grossly normal Skin Skin Narrative: Skin is pale and diaphoretic MDM MDM MDM Narrative Medical decision making narrative: Patient presented to the ER awake and alert with a stable blood pressure. However he had a large bright red bowel movement after arriving to the ER and at that time his blood pressure decreased to approximately 80/40 and he became pale and diaphoretic. With concern for active bleeding with acute blood loss anemia he was given 2 units of trauma blood. The administration of blood improved his blood pressure. He was also given 1 g of TXA secondary to concern for active bleed. Lab work shows that his hemoglobin has dropped from 13-8.4. A CTA was obtained because of the GI bleed and does indicate active bleeding within the rectum consistent with his exam. The case was discussed with Dr. Rodgers/gastroenterology. He feels the bleeding is most likely diverticular but recommends that general surgery be contacted because if the bleeding is not resolving spontaneously then they will need surgical intervention. The case was discussed with general surgery on-call Dr. Negro. She reviewed the patient's films and feels that based on the location of his bleed that if symptoms were to worsen she believes he would need interventional radiology involvement which is not available and therefore recommends transfer. Family was notified of this and they request [facility]. Therefore they were contacted and they do accept the patient to their facility at [place]. The patient has remained hemodynamically stable after blood but because of his initial drop and the fact he has had a third bowel movement although its been smaller in size there is concern that he can decompensate and therefore will be admitted to the ICU. This plan of care was discussed with patient and family and both are agreeable to it Please note there was an incidental finding of a segmental and subsegmental right lower lobe PE. At this time the patient is not hypoxic or tachycardic he is not complaining of chest pain and he is not having hemoptysis. As we cannot anticoagulate for the PEs because of the GI bleed he will just continue to be monitored History & Record Review Discussion w/independent historian: Patient and Family Lab Data Attestation: I reviewed the patient's lab results. Labs: Laboratory Results - last 24 hr 12/27/22 12/27/22 12/27/22 02:00 02:00 02:25 WBC 23.6 H RBC 2.90 L Hgb 8.4 L Hct 26.0 L MCV 89.7 MCH 29.0 MCHC 32.3 RDW Std Deviation 43.5 RDW Coeff of Michelle 13.2 Plt Count 369 MPV 9.6 Neut % (Auto) Not Reportable Absolute Neuts (auto) 17.2 H Absolute Lymphs (auto) 2.83 Total Counted 100 Neutrophils % (Manual) 71 H Band Neutrophils % 2 Lymphocytes % (Manual) 12 L Monocytes % (Manual) 7 Eosinophils % (Manual) 1 Metamyelocytes % 3 H Myelocytes % 4 H Diff Path Review May foll Platelet Estimate ADEQUATE RBC Morphology NORM C+C PT INR APTT Sodium 134 L Potassium 3.8 Chloride 105 Carbon Dioxide 24.0 Anion Gap 5 BUN 19 H Creatinine 0.88 Estim Creat Clear Calc 58.40 Est GFR (MDRD) Af Amer 107 Est GFR (MDRD) Non-Af 88 BUN/Creatinine Ratio 21.6 H Glucose 201 H Lactic Acid Calcium 8.1 L Total Bilirubin 0.20 Direct Bilirubin 0.09 AST 20 ALT 51 Alkaline Phosphatase 64 Troponin I High Sens 15 Total Protein 5.6 L Albumin 2.8 L Globulin 2.8 Blood Type A POSITIVE Antibody Screen NEGATIVE Crossmatch See Detail 12/27/22 12/27/22 02:25 02:35 WBC RBC Hgb Hct MCV MCH MCHC RDW Std Deviation RDW Coeff of Michelle Plt Count MPV Neut % (Auto) Absolute Neuts (auto) Absolute Lymphs (auto) Total Counted Neutrophils % (Manual) Band Neutrophils % Lymphocytes % (Manual) Monocytes % (Manual) Eosinophils % (Manual) Metamyelocytes % Myelocytes % Diff Path Review Platelet Estimate RBC Morphology PT 14.7 INR 1.2 APTT 26.9 Sodium Potassium Chloride Carbon Dioxide Anion Gap BUN Creatinine Estim Creat Clear Calc Est GFR (MDRD) Af Amer Est GFR (MDRD) Non-Af BUN/Creatinine Ratio Glucose Lactic Acid 2.7 H* Calcium Total Bilirubin Direct Bilirubin AST ALT Alkaline Phosphatase Troponin I High Sens Total Protein Albumin Globulin Blood Type Antibody Screen Crossmatch Radiography Diagnostic Testing: Clinical Impression(s) from Imaging Studies Abdomen/Pelvis CTA 12/27/22 02:02 IMPRESSION: Segmental and subsegmental pulmonary emboli in the right lower lobe. Bilateral renal cysts, the largest measures 2 cm. Diverticulosis of the colon. There is an umbilical hernia measures 8.7 cm. Small umbilical hernia measuring 3 cm containing fat. Large fecal residue in the rectum. Electronically Signed: Yue Jarvis MD at 4:11 EDT , ADDENDUM: 12/27/22 0424 IMPRESSION: Segmental and subsegmental pulmonary emboli in the right lower lobe. Bilateral renal cysts, the largest measures 2 cm. Diverticulosis of the colon. There is an umbilical hernia measures 8.7 cm. Small umbilical hernia measuring 3 cm containing fat. Large fecal residue in the rectum. N.B. : The above Results were Read Back by Yue Jarvis MD to aureliano vaughan DO, and understanding confirmed on 12/27/2022 04:17:29 (ET). Electronically Signed: Yue Jarvis MD at 4:11 EDT , ADDENDUM: 12/27/22 0428 IMPRESSION: undefined Management Discussion w/another healthcare provider: Director Diversity and Other Critical Care Time Critical Care Time: Yes Critical care time (excluding procedures): Discussing w/Patient &/or Family/Cement Handler, Discussing w/Consultants, Arranging Admission or Transfer and - (Please note critical care time of 37 minutes) Discharge Plan Triage Chief Complaint: GI Bleed ED Provider: Aureliano Vaughan Dx/Rx/DC Orders Clinical Impression: Acute GI bleeding, Acute blood loss anemia, Hx of subdural hematoma, Closed cervical spine fracture Prescriptions: No Action ferrous sulfate [Feosol] 325 mg (65 mg iron) tablet 325 mg PO BID cod liver oil Capsule 1 cap PO DAILY atorvastatin 40 mg tablet 40 mg PO QDAY Qty: 90 3RF metoprolol tartrate 25 mg tablet 12.5 mg PO BID Qty: 90 3RF lansoprazole 15 MG capsule 15 mg PO DAILY PRN PRN (Reason: reflux) Label Comments: reflux nitroglycerin 0.4 MG tablet 0.4 mg SUBLINGUAL Q5M PRN (Reason: Chest Pain) Qty: 30 0RF coenzyme [id number] E 1 EACH capsule 1 ea PO DAILY saw-vit E-sod [id number] 1 EACH tablet 1 ea PO DAILY acetaminophen 325 mg Tablet 650 mg PO TID oxycodone 5 mg Tablet 2.5 mg PO Q4H PRN (Reason: Pain) pantoprazole 20 mg Tablet,Delayed Release (Dr/Ec) 40 mg PO BID Primary Care Provider: Ludwig Diehl Referrals: Ludwig Diehl DO [Primary Care Provider] -
--- NOTE | 2022-12-27 07:32 | NURSING ---
[facility] [address] ROMAN NURSE TO NURSE [phone]
--- NOTE | 2022-12-27 07:36 | NURSING ---
CALLED [facility], ETA IS 2 HRS
--- NOTE | 2022-12-27 07:55 | ED.RN ---
report given to [facility] critical care transport team. Report given to babak pittman in [facility] [place] [facility]. family updated
[2022-12-30 09:55] LABS: Pathologist Review Reviewed
== END 2022-12-27 08:54 | disposition short-term general hospital (02) ==
LOC: ED 04:04
PROVIDERS: Emergency Provider Emergency Medicine; PCP Family Medicine; Visit Provider Emergency Medicine
DX: K92.2 Gastrointestinal hemorrhage, unspecified (principal); I10 Essential (primary) hypertension; I25.10 Atherosclerotic heart disease of native coronary artery without angina pectoris; E78.5 Hyperlipidemia, unspecified; Z95.5 Presence of coronary angioplasty implant and graft; D62 Acute posthemorrhagic anemia; Z79.899 Other long term (current) drug therapy
CPT/HCPCS: 74174; 80048; 80076; 83605; 84484; 85025; 85610; 85730; 86850; 86900; 86901; 86920; 86922; 93005; 96361; 96365; 96367; 96368; 99285; J7030; P9016; Q9967; A4216; J3490

== ENCOUNTER → 2023-01-16 | Outpatient (CLI) | payer OTHER, SELFPAY ==
[2017-03-04 14:13] VITALS: BMI 25.4
--- NOTE | 2023-01-16 07:32 | CT_ITS ---
STUDY: CT BRAIN WITHOUT CONTRAST REASON FOR EXAM: Male, 82 years old. SUBDURAL HEMATOMA. Follow-up examination. RADIATION DOSAGE (If Supplied By Facility): CTDIvol = ( 44.99 ) mGy, DLP = ( 812.98 ) mGycm TECHNIQUE: Transaxial CT imaging of the brain was performed without administration of intravenous contrast material. Individualized dose optimization techniques were used for this CT. COMPARISON: Comparison is made with prior examination dated December 17, 2022. FINDINGS: Normal soft tissue structures. The patient is status post right parietal craniotomy. There is mild cerebral atrophy with widening of the extra-axial spaces and ventricular dilatation. The previously seen left subdural hematoma has been evacuated. Small acute subdural hematoma is seen overlying the left frontal lobe. No significant mass effect is seen. Minimal residual prominent CSF space overlying the left parietal occipital lobes. Stable lacunar infarcts in the left basal ganglia. Normal brainstem. Normal cerebellum. There is no intracranial hemorrhage. There are no findings of an acute ischemic infarction. Atherosclerotic calcific plaques of the cavernous portions of the internal carotid arteries bilaterally. Normal visualized paranasal sinuses. CT/Brain/Head without Contrast IMPRESSION: Status post evacuation of the large left subdural hematoma with residual acute subdural hematoma overlying the left frontal lobe. No significant mass effect is seen at this time. No midline shift is present. Electronically Signed: Shaun Platt MD at 8:21 EDT ,
== END | disposition home or self-care (01) ==
LOC: CT 07:29
PROVIDERS: PCP Family Medicine
DX: S06.5XAA Traumatic subdural hemorrhage with loss of consciousness status unknown, initial encounter (principal)
CPT/HCPCS: 70450